=== PATIENT | female | born 1970 | race Two or more races ===

== ENCOUNTER → 2024-07-23 08:23 | Outpatient (REF) | payer MEDICARE, MEDICAID, SELFPAY ==
--- NOTE | ~2024-07-23 | NM_ITS ---
Lexiscan Myocardial perfusion study Indication: Chest pain, shortness of breath Technique: The patient was brought in for a Lexiscan perfusion study on 07/23/2024 and was injected 0.4 mg of Lexiscan intravenously. Within a minute of this injection 25 mCi of sestamibi was given intravenously. Images were obtained using the SPECT gamma camera interlaced with the gating device. Images were obtained in supine position. Resting perfusion study was performed on 07/29/2024. Patient was administered 25 mCi of sestamibi intravenously at rest. Images were then obtained in supine position. Total DLP 142 mGy-cm. Images were processed with the software and compared side to side in short axis, horizontal long axis and vertical long axis views. Findings: Raw aquisition reviewed. The stress perfusion study showed mildly decreased tracer uptake in the mid to distal lateral wall. There is also adjacent subdiaphragmatic tracer uptake. With CT attenuation correction, there is improvement suggestive of soft tissue attenuation artifact. The gated study shows normal LV systolic function with calculated LVEF of 62%. LV cavity is normal in size. The gated study shows normal wall thickening and contraction of segments. Resting study shows no significant perfusion abnormality. Gating at rest reveals normal wall motion with ejection fraction at 49%. The findings are consistent with lateral perfusion defect suggestive of soft tissue attenuation artifact. NM/NM chele perf SPECT rest & str Impression: 1. Myocardial perfusion imaging study shows no definitive evidence of ischemia or infarction. Reversible lateral perfusion defect suspected to be from soft tissue attenuation artifact. 2. Gated LVEF is 62% during stress and 49% during rest. 3. Transient ischemic dilatation not present. EKG component of the test reported separately. Electronically signed by: Manny Aragon MD 07/30/2024 12:15 PM EDT
--- NOTE | 2024-07-23 08:31 | CA_ITS ---
Acquisition Time: 2024-07-23 08:37:31 Total Exercise Time: 00:02:00 Test Indications: Dyspnea CP Medications: SEE H Protocol: LEXISCAN Max HR: 107 BPM 64% of Pred: 166 BPM Max BP: 172/070 mmHG Max Work Load: 1.6 METS Pharmacological stress test with Lexiscan injection, while walking slow on treadmill, without anginal symptoms, with 2/10 chest pressure at baseline which did not change during test, without arrythmia, with normotensive response to injection, with nondiagnostic EKG for ischemia. In recovery she was treated with Aminophylline 75mg IVP to reverse Lexiscan. Nuclear images pending. Test reviewed with Dr Aragon. Referred By: Leeanne Preciado Overread By: ROSAS FOWLER
== END ==
LOC: HO.CARD 08:23
PROVIDERS: PCP Physician Assistant Medical; Visit Provider Physician Assistant Medical
DX: R07.89 Other chest pain (principal)
CPT/HCPCS: 78452; 93017; A9500; J0280; J2785

== ENCOUNTER → 2024-07-23 08:31 | Outpatient (BNV) | payer MEDICARE, MEDICAID, SELFPAY | PROVIDERS: PCP Physician Assistant Medical; Visit Provider Nurse Practitioner Family | DX: R07.9 Chest pain, unspecified (principal); R06.02 Shortness of breath; R93.1 Abnormal findings on diagnostic imaging of heart and coronary circulation | CPT/HCPCS: 78452; 93016; 93018 ==

== ENCOUNTER 2024-09-08 14:31 | Outpatient (AMB) | payer MEDICARE, MEDICAID, SELFPAY ==
--- NOTE | 2024-09-08 14:46 | MHC.OFFVIS ---
Vital Signs 09/08/24 14:52 Height 4 ft 11 in Weight 166 lb 10.711 oz BMI 33.7 BP 136/84 Blood Pressure Location Rt brachial Position Sitting Pulse 62 Pulse Source Pulse Oximeter Pulse Oximetry (%) 96 Oxygen Delivery Method Room Air Intake Visit Reasons: Colonoscopy screening Intake Note: Erika presents in office today for a scheduled colo scrn. CC; Relevant GI Sx as reported per pt? Pt referred by PCP for colo. No sx per pt. ? Recent hx of relevant surgeries? No prior hx of colo. ? Relevant FMHx? No relevant hx per pt. Filer Metal Patterns Required: No Allergies No Known Allergies Allergy (Verified 09/08/24 14:50) Medication List - Last Reconciled 09/08/24 by Yelitza López, [facility]- amlodipine 5 mg PO DAILY atorvastatin 40 mg PO DAILY bisacodyl (Dulcolax (bisacodyl)) 20 mg (4 x 5 mg) PO ONCE 1 day bupropion HCl XL 300 mg PO DAILY clonidine HCl 0.1 mg PO BID famotidine 20 mg PO BID gabapentin mg PO polyethylene glycol 3350 (Miralax) 238 grams PO ONCE semaglutide (Ozempic) 0.25 mg subcut QWEEK HPI HPI Colonoscopy screening: Details: 53 year old? female here today for pre colonoscopy screening.? Patient was sent to us by her PCP.? This is her first colonoscopy screening.? Patient denies any gastrointestinal symptoms in the past or at present.? Patient reports occasional acid reflux depending on what she eats. Usually with red sauce. Patient is on famotidine b.i.d.. Patient is avoiding dietary triggers. Occasional reflux despite taking medication. Patient started taking Ozempic for weight loss about a month ago. Epigastric discomfort with 1st couple doses and doing better now. She is going in November for sleep study. Denies any personal or family history of gastrointestinal disease, colon polyps, or CRC.? Denies history of difficulty with sedation or anesthesia in the past.?? Denies any history of cardiac, renal, pulmonary, or hepatic disease.?? No history of infectious? diseases like hepatitis A, B, C, HIV or tuberculosis.? Patient is not on any anticoagulation [facility] Medical History (Updated 09/08/24 @ 14:50 by MIROSLAVA Dailey) Diabetes HTN (hypertension) Depression Social History (Updated 09/08/24 @ 14:50 by MIROSLAVA Dailey) Alcohol intake: never Patient Tobacco Use Status: Never used Tobacco Use of substances other than those prescribed or required for medical reasons: No Review of Systems Const Denies weight gain and Denies weight loss ENT Reports no additional complaints, Denies dysphagia and Denies odynophagia Card Reports no additional complaints Resp Reports no additional complaints GI Denies abdominal pain, Denies belching, Denies melena, Denies bloating, Denies change in bowel habits, Denies dysphagia, Denies excessive flatus, Denies dyspepsia, Reports heartburn (Occasions), Denies diarrhea, Denies loose stools, Denies nausea, Denies odynophagia and Denies vomiting Reports no additional complaints Musc Reports no additional complaints Neuro Reports no additional complaints Psych Reports no additional complaints Endo Reports no additional complaints Physical Exam Vital Signs: Last Vital Signs Pulse 62 09/08/24 14:52 BP 136/84 09/08/24 14:52 Pulse Ox 96 09/08/24 14:52 Oxygen Delivery Method Room Air 09/08/24 14:52 BMI result Body Mass Index 33.7 Const General: healthy appearing and no acute distress Nutritional Appearance: obese Orientation/consciousness: patient oriented x3 Resp Effort & Inspection: normal respiratory effort, able to speak in complete sentences, no tracheal deviation and symmetric chest movement Auscultation: clear to auscultation bilaterally Cardio Rate: regular rate GI Inspection: Yes normal to inspection, No distended and Yes obesity Palpation (GI): Soft to palpation, not firm, nontender and No hepatosplenomegaly present Auscultation: normal bowel sounds General: Yes no CVA tenderness Back/Spine/Pelvis Back: no CVA tenderness Skin General skin exam: elasticity normal, turgor normal and dry skin Neuro General: patient oriented x3 Psych Appearance: grossly normal Mental Status: mental status grossly normal Assessment & Plan Assessment & Plan (1) Screen for colon cancer: Code(s): Z12.11 - Encounter for screening for malignant neoplasm of colon (2) GERD (gastroesophageal reflux disease): Code(s): K21.9 - Gastro-esophageal reflux disease without esophagitis Plan Patient denies any GI, cardiac or respiratory symptoms.? Denies any issues with anesthesia in the past.? Denies any history of sleep apnea.? No history infectious diseases in the past or present.? Not on any anticoagulation therapy.? No family or personal history of colon cancer or polyps.? Patient denies melena, hematochezia, unintentional weight loss or ribbon like stools.? Discussed at length the pre-procedure,? prep, diet & medications as well as what to expect prior, during and after the procedure.?? Stressed the importance of good bowel prep.? Recommended the use of Vaseline or Calmoseptine OTC & baby wipes with bowel movements to promote comfort.? ?Patient verbalizes understanding and agrees to plan of care.? She was given the opportunity to ask questions and all questions answered.? We will see her after the procedure.? Medications: New polyethylene glycol 3350 (Miralax) As directed by gastroenterology department at [facility] 238 grams PO ONCE 238 grams 0RF Z12.11 - Encounter for screening for malignant neoplasm of colon bisacodyl (Dulcolax (bisacodyl)) take 4 tabs at noon the day before your colonoscopy 20 mg (4 x 5 mg) PO ONCE 4 tabs 0RF 1 day Z12.11 - Encounter for screening for malignant neoplasm of colon Coding Level of Care Code New Pt Level 3 (02240) Diagnoses Screen for colon cancer Z12.11 GERD (gastroesophageal reflux disease) K21.9 Time Spent (min) 40 Comment 30 minutes spent with patient and additional 10 minutes spent reviewing her records
[2024-09-08 14:52] VITALS: BP 136/84; PULSE 62; O2SAT 96; BMI 33.7
== END 2024-09-08 15:46 | disposition home or self-care (01) ==
PROVIDERS: PCP Physician Assistant Medical; Visit Provider Nurse Practitioner Family
DX: Z01.818 Encounter for other preprocedural examination (principal); Z12.11 Encounter for screening for malignant neoplasm of colon; K21.9 Gastro-esophageal reflux disease without esophagitis
CPT/HCPCS: 99024

== ENCOUNTER → 2024-09-08 14:31 | Outpatient (BNVA) | payer MEDICARE, MEDICAID, SELFPAY | PROVIDERS: PCP Physician Assistant Medical; Visit Provider Nurse Practitioner Family | DX: Z01.818 Encounter for other preprocedural examination (principal); K21.9 Gastro-esophageal reflux disease without esophagitis | CPT/HCPCS: 99212 ==

== ENCOUNTER 2024-12-29 06:47 | Day surgery (SDC) | payer MEDICARE, MEDICAID, SELFPAY ==
--- OUTSIDE RECORDS SUMMARY | 2024-11-20 14:11 | XMS_ITS | Clinical Summary ---
Author Organization [facility] ity Address [address] [place] [id number] Care Team Providers Care Pediatric Orthodontist Name Role Phone Unavailable Primary Care Provider Unavailabl e Social History Tobacco Use Types Packs/Day Years Used Date Smoking Tobacco: Never Assessed Comments Unknown Sex and Gender Information Value Date Recorded Sex Assigned at Not on file Legal Sex Female 2:07 AM EST Gender Identity Not on file Sexual Orientation Not on file Plan of Treatment Health Maintenance Due Date Last Done Comments Breast Cancer Screening 1969 DTaP,Tdap,and Td Vaccines (1 - Tdap) 1988 Hepatitis B Vaccines (1 of 3 - 19+ 3-dose series) 1988 Cervical Cancer Screening: P ap Smear 1990 Pneumococcal Vaccine: 50+ Ye ars (1 of 1 - PCV) 2019 Zoster Vaccines (1 of 2) 2019 Colorectal Cancer Screening: Colonoscopy 09/09/2022 Depression Screening 09/09/2022 HIV Screening 09/09/2022 Hepatitis C Screening 09/09/2022 Social Influencers of Health Screening 09/09/2022 COVID-19 Vaccine ( - 2023-2 5 season) 2024 Influenza Vaccine (#1) 2024 HIB Vaccines Aged Out No longer eligi ble based on patient's age to complete this topic HPV Vaccines Aged Out No longer eligi ble based on patient's age to complete this topic Hepatitis A Vaccines Aged Out No long er eligible based on patient's age to complete this topic IPV Vaccines Aged Out No longer eligi ble based on patient's age to complete this topic MMR Vaccines Aged Out No longer eligi ble based on patient's age to complete this topic Meningococcal ACWY Vaccine Aged Out N o longer eligible based on patient's age to complete this topic Meningococcal B Vacine Aged Out No lo nger eligible based on patient's age to complete this topic Pneumococcal Vaccine: Pediat rics (0 to 5 Years) and At-Risk Patients (6 to 64 Years) Aged Out No longer eligible b ased on patient's age to complete this topic RSV Immunization Patients Un stephanie 20 months Aged Out No longer eligible b ased on patient's age to complete this topic Varicella Vaccines Aged Out No longer eligible based on patient's age to complete this topic
--- OUTSIDE RECORDS SUMMARY | 2024-11-20 14:11 | XMS_ITS | Data Portability ---
Author Organization [facility], Main Office Address [address] [place] [address] [place] [phone] Care Team Providers Care Practical Nurse Name Role Phone [facility] Network Operations Center Technician PADMINI KLINE Primary Care Provider [phone] BETHANIE TRIVEDI Travel Professional JUAN WYNNE Orthopedic Surgeon Assessment No assessment recorded. Plan of Treatment Reminders Order Date Submit Date Provider Last Modified By Organization Details Last Modified Time Details Appointments Foll ow Up DM 30 2024 11:00A M Padmini Kline PA-C Not available Not available Not available Lab micr oalb umin /cre chad franco urin e 2024 025 [place] [facility], [facility] [address], [address], 11/12/2024 18:05:55 liptrinh orozco 2023 024 [place] [facility], [address], [address], 07/16/2024 06:08:49 trinh BARRERA ma 2023 024 [place] [facility], [address], [address], 07/16/2024 06:08:48 HbA1 c (hem oglo bin A1c) , zaid zarate 2023 024 [place] [facility], [address], [place], [address], 07/16/2024 06:08:50 CBC w/ auto diff 2023 024 [place] [facility], [address], [place], [address], 07/16/2024 06:08:47 nabor min D, 25-h ydro xy, tota l, seru m 2023 024 [place] [facility], [address], [place], [address], 07/16/2024 06:08:52 TSH, ultr a-se nsit praful, seru m 2023 024 [place] [facility], [address], [place], [address], 07/16/2024 06:08:51 hemo glob in A1C, fing erst ick 2023 024 In-Office Order, Internal Use Only DO Not Attach Compendium DO Not Attach Compendium, Do Not Delete/merge, [id number] 12/10/2023 13:28:37 HbA1 c (hem oglo bin A1c) , bloo d 2023 024 L[place] [facility], [address], [place], [address], 12/10/2023 13:40:32 lipi d pane l, seru m 2023 024 [place] [facility], [address], [place], [address], 07/07/2024 08:45:54 CMP, seru m or plas ma 2023 024 [place] [facility], [address], [place], [address], 07/07/2024 08:43:48 Referral gyne colo gist refe rral 2023 024 aurelio Not available 06/11/2024 08:38:15 slee p medi cine refe rral - Snor ing, obes ity, hype rten arnold . 2023 024 aurelio [facility], [address] [facility], [place], [address], 08/03/2024 16:18:42 jesús roen tero logi st refe rral 2023 024 aurelio [facility], [address] [place] [address] Dr, [facility], [place], [address], 08/24/2024 12:34:53 Procedures None silke rded . Surgeries None silke rded . Imaging MAMM O, scre enin g, digi sj, bila orion l 2023 024 aurelio [facility], [address], [place], [address], 07/16/2024 08:57:14 NM, myoc ardi al perf usio n scan , w/ stre ss - High risk for mohamud nary athe rosc lero sis, pt./ unab le to do regu lar stre ss due to dysp tony. 2023 024 [facility] (Imaging), [address] [place], [address], 07/23/2024 10:29:36 Medication Orders metf ormi n ER 500 mg tabl et,e xten ded rele ase 24 hr 2023 [id number], [address] [place], [address], 11/11/2024 14:45:56 Ozem pic 0.25 mg or 0.5 mg (2 mg/3 mL) subc utan eous pen inje ctor 2023 024 [id number], [address] [place], [address], 08/11/2024 14:06:33 Medr ol (Pedro ) 4 mg tabl ets in a dose pack 2023 024 [id number], [address] [place], [address], 08/11/2024 13:48:21 Wego vy 0.25 mg/0 .5 mL subc utan eous pen inje ctor 2023 025 [id number], [address] [place], [address], 11/11/2024 14:11:36 Wego vy 0.5 mg/0 .5 mL subc utan eous pen inje ctor 2023 024 [email or web address] os [id number], [address] [place], [address], 11/11/2024 14:12:04 Patient TargetsNo targets recorded. Patient Instructions Encounter Date Encounter Id Patient Instructions Last Modified By Organization Details Last Modified Time 12/10/2023 [id number] high blood pressure: care instructions Not available 12/10/2023 13:40:11 learning about high blood pressure Not available 12/10/2023 13:40:11 06/10/2024 [id number] mammogram: about this test Not available 06/10/2024 16:18:25 high cholesterol : care instructions Not available 06/10/2024 13:54:36 snoring: care instructions Not available 06/10/2024 13:58:58 high blood pressure: care instructions Not available 06/10/2024 13:54:36 learning about high blood pressure Not available 06/10/2024 13:54:36 06/16/2024 [id number] costochondritis: care instructions Not available 06/16/2024 14:54:43 08/11/2024 [id number] heart-healthy diet: care instructions Not available 08/11/2024 14:55:27 statins: care instructions Not available 08/11/2024 14:55:27 type 2 diabetes: care instructions Not available 08/11/2024 14:02:04 11/11/2024 [id number] type 2 diabetes: care instructions Not available 11/11/2024 14:46:56 Reason for Referral Sleep Medicine Referral for Snoring Snoring, obesity, hypertension. Referring Physician: Padmini Kline, Internal Medicine, Encounter Date: 06/10/2024 Hat Lacer Referral for Screening for malignant neoplasm of colon Referring Physician: Padmini Kline, Internal Medicine, Encounter Date: 06/10/2024 [employer] Referral for Sc reening for malignant neoplasm of cervix Referring Physician: Padmini Kline, Internal Medicine, Encounter Date: 06/10/2024 Results Created Date Observation Date Name Description Value Unit Range Abnormal Flag Note LastModifiedBy Organization Detail LastModifiedTime 12/10/1912/10/2023 hemog lobin A1C, finge rstic k A1C 6.2 % 4-6 abnormal Not Available In-Office Order Internal Use Only DO Not Attach Compendium DO Not Attach Compendium, Do Not Delete/merge, [id number] 12/10/2023 12:54:22 07/15/2007/16/2024 CBC WITH DIFFE RENTI AL/PL ATELE T WBC 7.7 x10e3 /uL 3.4-10 .8 normal Not Available [facility] ([facility]) [address] [place], [address], 07/16/2024 06:08:47 07/15/2007/16/2024 CBC WITH DIFFE RENTI AL/PL ATELE T RBC 4.51 x10e6 /uL 3.77-5 .28 normal Not Available [facility] ([facility]) [address] [place], [address], 07/16/2024 06:08:47 07/15/2007/16/2024 CBC WITH DIFFE RENTI AL/PL ATELE T hemoglobin 13.1 g/dL 11.1-1 5.9 normal Not Available [facility] ([facility]) [address] [place], [address], 07/16/2024 06:08:47 07/15/2007/16/2024 CBC WITH DIFFE RENTI AL/PL ATELE T hematocrit 40.5 % 34.0-4 6.6 normal Not Available [facility] ([facility]) [address] [place], [address], 07/16/2024 06:08:47 07/15/20 24 07/16/2024 CBC WITH DIFFE RENTI AL/PL ATELE T MCV 90 fL 79-97 normal Not Available [facility] ([facility]) [address] [place], [address], 07/16/2024 06:08:47 07/15/2007/16/2024 CBC WITH DIFFE RENTI AL/PL ATELE T MCH 29.0 pg 26.6-3 3.0 normal Not Available [facility] ([facility]) [address] [place], [address], 07/16/2024 06:08:47 07/15/2007/16/2024 CBC WITH DIFFE RENTI AL/PL ATELE T MCHC 32.3 g/dL 31.5-3 5.7 normal Not Available [facility] ([facility]) [address] [place], [address], 07/16/2024 06:08:47 07/15/20 24 07/16/2024 CBC WITH DIFFE RENTI AL/PL ATELE T RDW 13.0 % 11.7-1 5.4 Not Available [facility]) [address] [place], [address], 07/16/2024 06:08:47 07/15/20 24 07/16/2024 CBC WITH DIFFE RENTI AL/PL ATELE T platelets 299 x10e3 /uL 150-45 0 normal Not Available [facility] ([facility]) [address] [facility], [place], [address], 07/16/2024 06:08:47 07/15/20 24 07/16/2024 CBC WITH DIFFE RENTI AL/PL ATELE T neutrophils 58 % not estab. normal Not Available [facility] ([facility]) [address] [facility], [place], [address], 07/16/2024 06:08:47 07/15/20 24 07/16/2024 CBC WITH DIFFE RENTI AL/PL ATELE T lymphs 33 % not estab. normal Not Available [facility] ([facility]) [address] [facility], [place], [address], 07/16/2024 06:08:47 07/15/20 24 07/16/2024 CBC WITH DIFFE RENTI AL/PL ATELE T monocytes 7 % not estab. normal Not Available [facility] ([facility]) [address] [facility], [place], [address], 07/16/2024 06:08:47 07/15/20 24 07/16/2024 CBC WITH DIFFE RENTI AL/PL ATELE T eos 1 % not estab. normal Not Available [facility] ([facility]) [address] [facility], [place], [address], 07/16/2024 06:08:47 07/15/20 24 07/16/2024 CBC WITH DIFFE RENTI AL/PL ATELE T basos 1 % not estab. normal Not Available [facility] ([facility]) [address] [facility], [place], [address], 07/16/2024 06:08:47 07/15/20 24 07/16/2024 CBC WITH DIFFE RENTI AL/PL ATELE T immature cells GAS TREATER Not Available [facility]) [address] [place], [address], 07/16/2024 06:08:47 07/15/20 24 07/16/2024 CBC WITH DIFFE RENTI AL/PL ATELE T neutrophils (absolute) 4.4 x10e3 /uL 1.4-7. 0 normal Not Available [facility] ([facility]) [address] [place], [address], 07/16/2024 06:08:47 07/15/2007/16/2024 CBC WITH DIFFE RENTI AL/PL ATELE T lymphs (absolute) 2.6 x10e3 /uL 0.7-3. 1 normal Not Available [facility] ([facility]) [address] [place], [address], 07/16/2024 06:08:47 07/15/20 24 07/16/2024 CBC WITH DIFFE RENTI AL/PL ATELE T monocytes(ab solute) 0.5 x10e3 /uL 0.1-0. 9 normal Not Available [facility]) [address] [place], [address], 07/16/2024 06:08:47 07/15/20 24 07/16/2024 CBC WITH DIFFE RENTI AL/PL ATELE T eos (absolute) 0.1 x10e3 /uL 0.0-0. 4 normal Not Available [facility] ([facility]) [address] [place], [address], 07/16/2024 06:08:47 07/15/20 24 07/16/2024 CBC WITH DIFFE RENTI AL/PL ATELE T baso (absolute) 0.1 x10e3 /uL 0.0-0. 2 normal Not Available [facility] ([facility]) [address] [place], [address], 07/16/2024 06:08:47 07/15/20 24 07/16/2024 CBC WITH DIFFE RENTI AL/PL ATELE T immature granulocytes 0 % not estab. Not Available [facility] ([facility]) [address] [facility], [place], [address], 07/16/2024 06:08:47 07/15/2007/16/2024 CBC WITH DIFFE RENTI AL/PL ATELE T immature grans (abs) 0.0 x10e3 /uL 0.0-0. 1 Not Available [facility] ([facility]) [address] [facility], [place], [address], 07/16/2024 06:08:47 07/15/20 24 07/16/2024 CBC WITH DIFFE RENTI AL/PL ATELE T NRBC GAS TREATER Not Available [facility] ([facility]) [address] [facility], [place], [address], 07/16/2024 06:08:47 07/15/2007/16/2024 CBC WITH DIFFE RENTI AL/PL ATELE T hematology comments: GAS TREATER Not Available [facility]) [address] [facility], [place], [address], 07/16/2024 06:08:47 07/15/2007/16/2024 COMP. METAB OLIC PANEL (14) glucose 120 mg/dL 70-99 above high normal Not Available [facility] ([facility]) [address] [facility], [place], [address], 07/16/2024 06:08:48 07/15/2007/16/2024 COMP. METAB OLIC PANEL (14) BUN 7 mg/dL 6-24 normal Not Available [facility] ([facility]) [address] [facility], [place], [address], 07/16/2024 06:08:48 07/15/2030 0707/16/2024 COMP. METAB OLIC PANEL (14) creatinine 0.76 mg/dL 0.57-1 .00 normal Not Available [facility] ([facility]) [address] [facility], [place], [address], 07/16/2024 06:08:48 07/15/20 24 07/16/2024 COMP. METAB OLIC PANEL (14) eGFR 93 mL/mi n/1.7 3 >59 normal Not Available [facility] ([facility]) [address] [facility], [place], [address], 07/16/2024 06:08:48 07/15/20 24 07/16/2024 COMP. METAB OLIC PANEL (14) BUN/creatini ne ratio 9 9-23 normal Not Available [facility]) [address] [facility], [place], [address], 07/16/2024 06:08:48 07/15/20 24 07/16/2024 COMP. METAB OLIC PANEL (14) sodium 145 mmol/ L 134-14 4 above high normal Not Available [facility] ([facility]) [address] [facility], [place], [address], 07/16/2024 06:08:48 07/15/20 24 07/16/2024 COMP. METAB OLIC PANEL (14) potassium 4.1 mmol/ L 3.5-5. 2 normal Not Available [facility] ([facility]) [address] [facility], [place], [address], 07/16/2024 06:08:48 07/15/20 24 07/16/2024 COMP. METAB OLIC PANEL (14) chloride 107 mmol/ L 96-106 above high normal Not Available [facility] ([facility]) [address] [facility], [place], [address], 07/16/2024 06:08:48 07/15/20 24 07/16/2024 COMP. METAB OLIC PANEL (14) carbon dioxide, total 22 mmol/ L 20-29 normal Not Available [facility] ([facility]) [address] [place], [address], 07/16/2024 06:08:48 07/15/20 24 07/16/2024 COMP. METAB OLIC PANEL (14) calcium 9.3 mg/dL 8.7-10 .2 normal Not Available [facility] ([facility]) [address] [place], [address], 07/16/2024 06:08:48 07/15/20 24 07/16/2024 COMP. METAB OLIC PANEL (14) protein, total 6.9 g/dL 6.0-8. 5 normal Not Available [facility] ([facility]) [address] [place], [address], 07/16/2024 06:08:48 07/15/20 24 07/16/2024 COMP. METAB OLIC PANEL (14) albumin 4.1 g/dL 3.8-4. 9 normal Not Available [facility] ([facility]) [address] [place], [address], 07/16/2024 06:08:48 07/15/20 24 07/16/2024 COMP. METAB OLIC PANEL (14) globulin, total 2.8 g/dL 1.5-4. 5 Not Available [facility] ([facility]) [address] [facility] [place], [address], 07/16/2024 06:08:48 07/15/20 24 07/16/2024 COMP. METAB OLIC PANEL (14) bilirubin, total 0.2 mg/dL 0.0-1. 2 normal Not Available [facility] ([facility] [address] [facility] [place], [address], 07/16/2024 06:08:48 07/15/20 24 07/16/2024 COMP. METAB OLIC PANEL (14) alkaline phosphatase 109 IU/L 44-121 normal Not Available [facility] [address] [facility] [place], [address], 07/16/2024 06:08:48 07/15/20 24 07/16/2024 COMP. METAB OLIC PANEL (14) AST (SGOT) 17 IU/L 0-40 normal Not Available [facility] ([facility]) [address] [facility] [place], [address], 07/16/2024 06:08:48 07/15/20 24 07/16/2024 COMP. METAB OLIC PANEL (14) ALT (SGPT) 17 IU/L 0-32 normal Not Available [facility] ([facility]) [address] [facility] [place], [address], 07/16/2024 06:08:48 07/15/20 24 07/16/2024 LIPID PANEL cholesterol, total 149 mg/dL 100-19 9 normal Not Available [facility] ([facility]) [address] [facility] [place], [address], 07/16/2024 06:08:49 07/15/20 24 07/16/2024 LIPID PANEL triglyceride s 206 mg/dL 0-149 above high normal Not Available [facility]) [address] [facility] [place], [address], 07/16/2024 06:08:49 07/15/20 24 07/16/2024 LIPID PANEL HDL cholesterol 41 mg/dL >39 normal Not Available [facility] [address] [facility] [place], [address], 07/16/2024 06:08:49 07/15/20 24 07/16/2024 LIPID PANEL VLDL cholesterol elian 34 mg/dL 5-40 Not Available [facility] [address] [facility] [place], [address], 07/16/2024 06:08:49 07/15/20 24 07/16/2024 LIPID PANEL LDL chol calc ([facility]) 74 mg/dL 0-99 Not Available [facility] [address] [facility], [place], [address], 07/16/2024 06:08:49 07/15/20 24 07/16/2024 LIPID PANEL LDL calc comment: GAS TREATER Not Available [facility] [address] [facility], [place], [address], 07/16/2024 06:08:49 07/15/20 24 07/16/2024 HEMOG LOBIN A1C hemoglobin A1C 6.5 % 4.8-5. 6 above high normal Predi abete s: 5.7 - 6.4 Diabe vineet: >6.4 Glyce samina contr ol for adult s with diabe vineet: <7.0 Not Available [facility] ([facility]) [address] [facility], [place], [address], 07/16/2024 06:08:50 07/15/20 24 07/16/2024 TSH TSH 2.850 uIU/m L 0.450- 4.500 normal Not Available [facility] ([facility]) [address] [facility], [place], [address], 07/16/2024 06:08:50 07/15/20 24 07/16/2024 VITAM IN D, 25-HY DROXY vitamin D, 25-hydroxy 19.9 NG/mL 30.0-1 00.0 below low normal Vitam in D defic iency has been defin ed by the Insti tute of Medic ine and an Endoc rine Socie ty pract ice guide line as a level of serum 25-OH vitam in D less than 20 ng/mL (1,2) . The Endoc rine Socie ty went on to furth er defin e vitam in D insuf ficie ncy as a level betwe en 21 and 29 ng/mL (2). 1. IOM (Inst itute of Medic ine). 2010. Dieta ry refer ence intak es for calci um and D. Washi ngton [place]: The [facility] . 2. Gary FRANCIS, Francisco CAMPOS, Bischeri off-F martin CUMMINGS, et al. Evalu ation , treat ment, and preve ntion of vitam in D defic iency : an Endoc rine Socie ty clini elian pract ice guide line. JCEM. 2010; 96(7) :191 -. Not Available [facility] ([facility]) [address] [facility], [place], [address], 07/16/2024 06:08:52 08/28/20 24 08/29/2024 VITAM IN D, 25-HY DROXY vitamin D, 25-hydroxy 56.7 NG/mL 30.0-1 00.0 Vitam in D defic iency has been defin ed by the Insti tute of Medic ine and an Endoc rine Socie ty pract ice guide line as a level of serum 25-OH vitam in D less than 20 ng/mL (1,2) . The Endoc rine Socie ty went on to furth er defin e vitam in D insuf ficie ncy as a level betwe en 21 and 29 ng/mL (2). 1. IOM (Inst itute of Medic ine). 2009. Dieta ry refer ence intelva es for calci um and D. Lillie smith [place]: The [facility] . 2. Gary FRANCIS, Francisco CAMPOS, Vita off-F martin CUMMINGS, et al. Evalu ation , treat ment, and preve ntion of vitam in D defic iency : an Endoc rine Socie ty clini elian pract ice guide line. JCEM. 2010; 96(7) :191 -. Not Available [facility] ([facility]) [address] [facility], [place], [address], 08/29/2024 06:08:40 11/11/19 25 11/12/2024 ALBUM IN/CR EAT RATIO , RANDO M UR creatinine, urine 296.6 mg/dL not estab. normal Not Available [facility] ([facility]) [address] [facility], [place], [address], 11/12/2024 18:05:55 11/11/19 25 11/12/2024 ALBUM IN/CR EAT RATIO , JHONNY Diallo UR albumin, urine 12.0 ug/mL not estab. Not Available [facility] ([facility]) [address] [facility], [place], [address], 11/12/2024 18:05:55 11/11/19 25 11/12/2024 ALBUM IN/CR EAT RATIO , NYO Imani UR alb/creat ratio 4 mg/g_ creat 0-29 Rosanna l: 0 - 29 Moder ately incre ased: 30 - 300 Sever ruba incre ased: >300 Not Available [facility] ([facility]) [address] [facility], [place], [address], 11/12/2024 18:05:55 07/23/20 24 07/23/2024 NM, myoca rdial perfu arnold scan, w/ stres s No observ ation record ed. [facility] (Medical Records) [address] [place] [address], [address], 07/24/2024 15:09:56 07/30/20 24 07/23/2024 NM, myoca rdial perfu arnold scan, w/ stres s No observ ation record ed. [facility] (Medical Records) [address] [place], [address], 08/10/2024 21:44:08 08/09/20 24 08/09/2024 MAMMO kelvin digit al, bilat eral No observ ation record ed. [email or web address] [facility] [address], [place], [address], 08/10/2024 09:05:45 08/09/20 24 08/08/2024 MAMMO kelvin digit al, bilat eral PROCED URE: MM Digita l Mammo Screen ing INDICA TION: Screen ing for breast cancer . No known palpab le abnorm alitie s. COMPAR JIMMY: Prior mammog cathleen most recent ly dated 2021. TECHNI QUE: Full-f ield digita l CC and MLO 3D tomosy nthesi s images of both breast s were acquir ed. Comput er-aid ed detect ion (CAD) was utiliz ed in the interp retati on of this study. DENSIT Y: There are scatte red areas of fibrog landul ar densit y. FINDIN GS: Only seen on the cranio caudal view is an 8 mm oval asymme try in the slight ly medial left breast at middle depth. Furthe r evalua tion with spot compre ssion and ML views is recomm ended. Additi onal target ed ultras ound in the right No suspic ious findin gs are seen in the right breast . IMPRES ARNOLD: Additi onal imagin g recomm ended. We will recall the deirdre kaur. RECOMM ENDATI ON: Diagno stic 3D tomosy nthesi s of the left breast with schedu led ultras ound BI-RAD S: 0 Incomp lete - Need Additi onal Imagin g Evalua tion. Lay letter mailed to deirdre kaur WSN: [id number] Orderi ng Physic ashley: Edwin Kline Dictat ed By: Jose Angel Mcgowan MD Dictat ed Date/T cecily: 1:03 pm Review ed By: Jose Angel Mcgowan MD Signed By: Jose Angel Mcgowan MD Signed Date/T cecily: 1:03 pm Transc ribed By: MARCIA Transc riptio n Date/T cecily: 1:01 pm Birads : Deirdre kaur Class: Outpat ient [email or web address] [facility] (Outpt Imaging) [address] [place], [address], 08/10/2024 09:05:45 08/18/20 24 08/18/2024 US, shikha clemons No observ ation record ed. [facility] [address], [place], [address], 08/18/2024 10:08:12 08/18/20 24 08/18/2024 US, aixa t, limit ed PROCED URE: MM Digita l Mammo Unilat Left, US Breast Left Limite d INDICA TION: Callba ck left breast COMPAR JIMMY: Multip le prior compar jimmy studie s, most recent on 2023. TECHNI QUE: Digita l diagno stic mammog katharine consis ting of a spot compre ssion view in the cranio caudad projec tion and a full field latera l view using 3D tomosy nthesi s. Comput er-aid ed detect ion (CAD) was utiliz ed in the interp retati on of this study. In additi on, target ed high-r esolut ion ultras ound of the left breast in the area of mammog raphic concer n was perfor med. DENSIT Y: There are scatte red areas of fibrog landul ar densit y. FINDIN GS: The previo usly seen asymme try in the centra l left breast only seen in the cranio caudal projec tion is no longer apprec iated in the spot compre ssion view or mediol ateral projec tion. Howeve r, ultras ound was perfor med to better charac terize the breast parenc hyma. Sonogr aphic evalua tion of the left breast focusi ng in the retroa reolar region from the nipple to the chest wall and at 12:00 and 6:00 positi ons, 1-6 cm from the nipple , was perfor med. No abnorm ality is presen t. IMPRES ARNOLD: Resolu tion of the asymme try in the centra l left breast withou t sonogr aphic correl ate. This may repres ent overla pping fibrog landul ar tissue , howeve r given the initia l appear ance in the screen ing mammog katharine of 2023, 6 months follow -up with 3D tomosy nthesi s is recomm ended to confir m resolu tion of this findin g and prove benign ity. RECOMM ENDATI ON: Follow -up diagno stic 3D tomosy nthesi s of the left breast in 6 months BI-RAD S: 3 (Proba lara Benign ) Lay letter mailed to deirdre kaur WSN: [id number] Orderi ng Physic ashley: Edwin Kline ia Dictat ed By: Charo David MD Dictat ed Date/T cecily: 9:20 am Review ed By: Charo David MD Signed By: Charo David MD Signed Date/T cecily: 9:20 am Transc ribed By: MARCIA Transc ribed Date/T cecily: 9:01 am Deirdre kaur Class: Outpat ient [facility] (Outpt Imaging) [address] [place] [address], [address], 08/18/2024 09:51:21 08/18/20 24 08/18/2024 mm digit al mammo unila t left PROCED URE: MM Digita l Mammo Unilat Left, US Breast Left Limite d INDICA TION: Callba ck left breast COMPAR JIMMY: Multip le prior compar jimmy studie s, most recent on 2023. TECHNI QUE: Digita l diagno stic mammog katharine consis ting of a spot compre ssion view in the cranio caudad projec tion and a full field latera l view using 3D tomosy nthesi s. Comput er-aid ed detect ion (CAD) was utiliz ed in the interp retati on of this study. In additi on, target ed high-r esolut ion ultras ound of the left breast in the area of mammog raphic concer n was perfor med. DENSIT Y: There are scatte red areas of fibrog landul ar densit y. FINDIN GS: The previo usly seen asymme try in the centra l left breast only seen in the cranio caudal projec tion is no longer apprec iated in the spot compre ssion view or mediol ateral projec tion. Howeve r, ultras ound was perfor med to better charac terize the breast parenc hyma. Sonogr aphic evalua tion of the left breast focusi ng in the retroa reolar region from the nipple to the chest wall and at 12:00 and 6:00 positi ons, 1-6 cm from the nipple , was perfor med. No abnorm ality is presen t. IMPRES ARNOLD: Resolu tion of the asymme try in the centra l left breast withou t sonogr aphic correl ate. This may repres ent overla pping fibrog landul ar tissue , howeve r given the initia l appear ance in the screen ing mammog katharine of 2023, 6 months follow -up with 3D tomosy nthesi s is recomm ended to confir m resolu tion of this findin g and prove benign ity. RECOMM ENDATI ON: Follow -up diagno stic 3D tomosy nthesi s of the left breast in 6 months BI-RAD S: 3 (Proba lara Benign ) Lay letter mailed to deirdre kaur WSN: [id number] Orderi ng Physic ashley: Edwin Kline Dictat ed By: Charo David MD Dictat ed Date/T cecily: 9:20 am Review ed By: Charo David MD Signed By: Charo David MD Signed Date/T cecily: 9:20 am Transc ribed By: MARCIA Transc riptio n Date/T cecily: 9:01 am Birads : Deirdre kaur Class: Outpat ient [facility] (Outpt Imaging) [address] [place] [address], [address], 11/11/2024 14:50:42 Result Notes None recorded. Problems Name Problem SNOMED Code Status Onset Date Resolution Date Notes Provider Name and Address Organization Details Recorded Time Abdomina l pain 82715475 Completed 201204/27/2014 RECORDED 11/06/19 13 1:40AM BY SHAHID BOWIE MA, ANNOTATI ON/ADDGRISEL wheeler MA - [facility] [place] 6 11:24:43 Epigastr ic pain 61133944 Completed 201104/27/2014 STORY: PROB HEARTBUR N; RECORDED 06/10/20 12 1:26PM BY SHAHID BOWIE MA, [facility]ATI [facility] DAVE ZarateSamantha merna null, [facility] 6 11:24:43 Acute pharyngi tis 053113819 Completed 200804/27/2014 IMPRESSI ON: SEND FOR STREP, ALL SEEMS VIRAL TX WITH MOTRIN, FLUIDS AND REST; RECORDED 08/03/20 09 12:44PM BY FAVIAN MONTILLA ON/[facility] Amber MoultonEhsanrobert merna null, [facility] 6 11:24:43 Acute sinusiti s [id number] Completed 201104/27/2014 RECORDED 06/10/20 12 1:26PM BY SHAHID BOWIE MA, FAVIAN ON[facility] Amber ZarateMarlenrobert merna null, [facility] 6 11:24:43 Acute upper respirat ory infectio n 28147563 Completed 201104/27/2014 RECORDED 06/10/20 12 1:26PM BY SHAHID BOWIE MA, FAVIAN ON/[facility] Amber TessaMarlenrobert merna null, [facility] 6 11:24:43 Anemia 476745015 Completed 02/04/2019 Padmini Kline PA-C [address] [facility] [address], [facility] [place], [address] [place] [address] 9 13:33:00 Patient status finding [id number] Completed 201204/27/2014 RECORDED 02/20/20 13 10:03AM BY NITISH BAEZ MA, ANNOTGUILLERMO ON/[facility] Ambre TessaSamantha merna null, [facility] 6 11:24:43 Backache [id number] Completed 201104/27/2014 IMPRESSI ON: CHRONIC/ RECURREN T. 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 DISCUSSE D NATURAL COURSE OF AIRLINE LOUNGE RECEPTIONIST AL BACK PAIN. WILL REST, USE INTERMIT TENT HEAT/ICE , NSAID FOR PAIN. WILL LIKELY NEED PT, POSSIBLE REFERRAL TO PSS SHOULD SXS FAIL TO IMPROVE. DECLINES ORDER FOR NOW, WILL CONTACT ME IN 1 WEEK WITH UPDATE.; RECORDED 06/10/20 12 1:26PM BY SHAHID BOWIE MA, FAVIAN ON/[facility] platt null, [facility] 6 11:24:43 Screenin g for malignan t neoplasm of cervix Completed 201304/27/2014 RECORDED 01/12/20 14 11:25AM BY NITISH BAEZ MA, FAVIAN ON/[facility] Amber platt null, [facility] 6 11:24:43 Breathin g painful [id number] Completed 201104/27/2014 RECORDED 06/10/20 12 1:26PM BY SHAHID BOWIE MA, FAVIAN ON/[facility] Amber platt null, [facility] 6 11:24:43 Chest pain 36792035 Completed 201307/20/2014 IMPRESSI ON: ATYPICAL CHEST PAIN, REASSURI NG ECG AND NORMAL EXAM, SUSPECT ANXIETY RELATED BUT SHE DOES REPORT A SYNCOPAL EPISODE, WILL CHECK SOME LABS, SHE DOES HAVE LORAZEPA M TO TAKE IF NEEDED; RECORDED 03/08/20 14 10:56AM BY NITISH BAEZ MA, OFFICE VISIT Amber wheeler, [facility] 6 11:24:43 Dysphagi a [id number] Completed 200804/27/2014 RECORDED 06/18/20 09 11:33AM BY FAVIAN BOSS ON/[facility] Amber platt null, [facility] 6 11:24:43 Dysuria [id number] Completed 200704/27/2014 RECORDED 08/10/20 08 2:55PM BY HILLARY ARENAS MA, FAVIAN ON/[facility] Amber platt null, [facility] 6 11:24:43 Gastroes ophageal reflux disease 043733500 Active Amber wheeler, [facility] 6 11:24:43 Malaise and fatigue 026779640 Completed 11/07/2017 Tran Kaplan MA null, [facility] 8 08:34:08 Influenz a vaccine needed 78234163406 06 Completed 201304/27/2014 RECORDED 01/12/20 14 11:25AM BY NITISH BAEZ MA, JOLLYATI ON/ADDEN DUM Amber MoultonEhsanrobert merna null, [facility] 6 11:24:43 Noninfec tious gastroen teritis 19745317 Completed 201104/27/2014 RECORDED 06/10/20 12 1:25PM BY SHAHID BOWIE MA, FAVIAN ON/ADDEN DUM Amber MoultonEhsanrobert merna null, [facility] 6 11:24:43 Adult health examinat ion Completed 201204/27/2014 RECORDED 02/20/20 13 10:03AM BY NITISH BAEZ MA, FAVIAN ON/ADDEN DUM Amber MoultonEhsanrobert merna null, [facility] 6 11:24:43 General examinat ion of patient Completed 200704/27/2014 RECORDED 08/10/20 08 2:54PM BY HILLARY ARENAS MA, FAVIAN ON/ADDEN DAVE Berriosannarobert merna null, [facility] 6 11:24:43 Influenz a with respirat ory manifest ation other than pneumoni a Completed 201104/27/2014 STORY: CLINICAL DX. FEVER/MY LAGIA/CUMMINGS ; RECORDED 06/10/20 12 1:26PM BY SHAHID BOWIE MA, FAVIAN ON/ADDEN DUM Amber MoultonEhsanrobert merna null, [facility] 6 11:24:43 Insomnia 512804795 Active Amber wheeler, [facility] 6 11:24:43 Transien t insomnia 730334568 Completed 02/04/2019 Padmini Kline PA-C [address], [place], [address], [facility] 9 13:33:45 Hyperlip idemia screenin g Completed 201307/20/2014 RECORDED 03/08/20 14 10:56AM BY NITISH BAEZ MA, OFFICE VISIT Amber platt null, [facility] 6 11:24:43 Low back pain 036797899 Completed 201204/27/2014 RECORDED 05/26/20 13 9:50AM BY NITISH BAEZ MA, ANNOTATI ON/ADDEN DUM Tran wheeler, [facility] 6 08:58:09 Lumbar sprain 882346004 Completed 200804/27/2014 RECORDED 06/18/20 09 11:34AM BY KASIA ARSHAD, JOLLYATI ON/ADDEN DUM Amber platt null, [facility] 6 11:24:43 Single major depressi ve episode Completed 10/24/2018 Padmini Kline PA-C [address], [place], [address], [facility] 9 14:24:18 Screenin g for malignan t neoplasm of breast Completed 201304/27/2014 RECORDED 01/12/20 14 11:25AM BY NITISH BAEZ MA, JOLLYATI ON/ADDEN DUM Amber platt null, [facility] 6 11:24:43 Patient status finding [id number] Completed 201307/20/2014 RECORDED 03/08/20 14 10:56AM BY NITISH BAEZ MA, OFFICE VISIT Amber platt null, [facility] 6 11:24:43 Cyst of ovary 11486946 Completed 09/14/2016 Tran wheeler, [facility] 6 08:58:43 Shoulder joint pain 782183592 Completed 201104/27/2014 IMPRESSI ON: R SHOULDER , SUSPECT AN OVERUSE SECONDAR Y TO WORK ACTIVITI ES. 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 CALL FOR WORSENIN G OR IF NO BETTER IN 1 WEEK.; RECORDED 06/10/20 12 1:26PM BY SHAHID BOWIE MA, FAVIAN ON/ADDEN DAVE wheeler [facility] 6 11:24:43 Panic disorder without agorapho guilherme 20369358 Active Amber wheeler [facility] 6 11:24:43 Adult health examinat ion Completed 201307/20/2014 RECORDED 03/08/20 14 10:56AM BY NITISH BAEZ MA, OFFICE VISIT Amber wheeler [facility] 6 11:24:43 Sciatic nerve lesion 156122463 Completed 201104/27/2014 RECORDED 06/10/20 12 1:25PM BY SHAHID BOWIE MA, ANNOTATI ON/[facility] 6 11:24:43 Chronic sinusiti s 14019073 Completed 201104/27/2014 RECORDED 06/10/20 12 1:26PM BY SHAHID BOWIE MA, ANNOTATI ON/[facility] 6 11:24:43 Toxic effect of venom 11190102 Completed 201104/27/2014 IMPRESSI ON: L ARM WITH WHAT APPEARS TO BE A MODERATE LOCALIZE D ALLERGIC RXN. NO SIGNS OF SECONDAR Y INFEC. PT TO CONTINUE WITH ICE COMPRESS ES AND WILL START ON BENADRYL . MAY ALSO USE TOPICAL HYDROCOR TISONE FOR SX RELIEF. MONITOR SXS AT HOME AND F/U PRN IF ANY WORSENIN G.; RECORDED 06/10/20 12 1:25PM BY SHAHID BOWIE MA, FAVIAN ON/ADDEN DUM Amber wheeler [facility] 6 11:24:43 Syncope and collapse 802753392 Completed 201104/27/2014 RECORDED 06/10/20 12 1:26PM BY SHAHID BOWIE MA, FAVIAN ON/ADDEN DUM KASIA Worrell, [facility] 0 15:59:02 Viral disease 02342700 Completed 201104/27/2014 RECORDED 06/10/20 12 1:26PM BY SHAHID BOWIE MA, ANNOTATI ON/ADDEN DUM Amber wheeler [facility] 6 11:24:43 Acute pharyngi tis 519150395 Completed 07/20/2014 Amber wheeler [facility] 6 11:24:43 Acute upper respirat ory infectio n 85875390 Completed 07/20/2014 Amber wheeler [facility] 6 11:24:43 Contact dermatit is caused by urushiol from [facility] dahlia [id number] Completed 07/20/2014 Amber wheeler [facility] 6 11:24:43 Abdomina l pain 72058551 Completed 201205/17/2014 RECORDED 11/06/19 13 1:40AM BY SHAHID BOWIE MA, ANNOTATI ON/ADDEN DUM Amber wheeler [facility] 6 11:24:43 Epigastr ic pain 33932986 Completed 201105/17/2014 STORY: PROB HEARTBUR N; RECORDED 06/10/20 12 1:26PM BY SHAHID BOWIE MA, FAVIAN ON/ADDEN DUM Amber wheeler [facility] 6 11:24:43 Acute pharyngi tis 898913134 Completed 200805/17/2014 IMPRESSI ON: SEND FOR STREP, ALL SEEMS VIRAL TX WITH MOTRIN, FLUIDS AND REST; RECORDED 08/03/20 09 12:44PM BY FAVIAN MONTILLA ON/[facility] Amber TessaSamantha merna null, [facility] 6 11:24:43 Acute sinusiti s 65525618 Completed 201105/17/2014 RECORDED 06/10/20 12 1:26PM BY SHAHID BOWIE MA, FAVIAN ON/ADDEN DAVE Amber TessaMarlenrobert merna null, [facility] 6 11:24:43 Acute upper respirat ory infectio n 39955726 Completed 201105/17/2014 RECORDED 06/10/20 12 1:26PM BY SHAHID BOWIE MA, [facility]IAN ON[facility] Amber TessaSamantha merna null, [facility] 6 11:24:43 Patient status finding [id number] Completed 201205/17/2014 RECORDED 02/20/20 13 10:03AM BY NITISH BAEZ MA, [facility]IAN ON[facility] Amber TessaMarlenrobert merna null, [facility] 6 11:24:43 Backache 347080924 Completed 201105/17/2014 IMPRESSI ON: CHRONIC/ RECURREN T. 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 DISCUSSE D NATURAL COURSE OF AIRLINE LOUNGE RECEPTIONIST AL BACK PAIN. WILL REST, USE INTERMIT TENT HEAT/ICE , NSAID FOR PAIN. WILL LIKELY NEED PT, POSSIBLE REFERRAL TO PSS SHOULD SXS FAIL TO IMPROVE. DECLINES ORDER FOR NOW, WILL CONTACT ME IN 1 WEEK WITH UPDATE.; RECORDED 06/10/20 12 1:26PM BY SHAHID BOWIE MA, FAVIAN ON/ELIDIA ZarateMarlenrobert merna null, [facility] 6 11:24:43 Screenin g for malignan t neoplasm of cervix Completed 201305/17/2014 RECORDED 01/12/20 14 11:25AM BY NITISH BAEZ MA, ANNOTATI ON/ADDEN DUM Amber D'Alessan merna null, [facility] 6 11:24:43 Breathin g painful 28590140 Completed 201105/17/2014 RECORDED 06/10/20 12 1:26PM BY SHAHID BOWIE MA, ANNOTATI ON/ADDEN DUM Amber D'Alessan merna null, [facility] 6 11:24:43 Dysphagi a 79213515 Completed 200805/17/2014 RECORDED 06/18/20 09 11:33AM BY KASIA ARSHAD, JOLLYATI ON/ADDEN DUM Amber D'Alessan merna null, [facility] 6 11:24:43 Dysuria 79147271 Completed 200705/17/2014 RECORDED 08/10/20 08 2:55PM BY HILLARY ARENAS MA, JOLLYATI ON/ADDEN DUM Amber D'Alessan merna null, [facility] 6 11:24:43 Influenz a vaccine needed 49398772359 06 Completed 201305/17/2014 RECORDED 01/12/20 14 11:25AM BY NITISH BAEZ MA, FAVIAN ON/ADDEN DUM Amber D'Alessan merna null, [facility] 6 11:24:43 Noninfec tious gastroen teritis 02366926 Completed 201105/17/2014 RECORDED 06/10/20 12 1:25PM BY SHAHID BOWIE MA, FAVIAN ON/ADDEN DUM Amber D'Alessan merna null, [facility] 6 11:24:43 Adult health examinat ion Completed 201205/17/2014 RECORDED 02/20/20 13 10:03AM BY NITISH BAEZ MA, FAVIAN ON/ADDEN DUM Amber D'Alessan merna null, [facility] 6 11:24:43 General examinat ion of patient Completed 200705/17/2014 RECORDED 08/10/20 08 2:54PM BY HILLARY ARENAS MA, ANNOTATI ON/ADDEN DUM Amber SaigeAleannarobert merna null, [facility] 6 11:24:43 Influenz a with respirat ory manifest ation other than pneumoni a Completed 201105/17/2014 STORY: CLINICAL DX. FEVER/MY LAGIA/CUMMINGS ; RECORDED 06/10/20 12 1:26PM BY SHAHID BOWIE MA, ANNOTATI ON/ADDEN DUM Amber TessaArmandoAleannarobert merna null, [facility] 6 11:24:43 Low back pain 524963151 Completed 201205/17/2014 RECORDED 05/26/20 13 9:50AM BY NITISH BAEZ MA, ANNOTATI ON/ADDEN DUM Tran Kaplan MA null, [facility] 6 08:58:09 Lumbar sprain 203013764 Completed 200805/17/2014 RECORDED 06/18/20 09 11:34AM BY JOLLY BOSSATI ON/[facility] Amber TessaArmandoAleannarobert merna null, [facility] 6 11:24:43 Screenin g for malignan t neoplasm of breast Completed 201305/17/2014 RECORDED 01/12/20 14 11:25AM BY NITISH BAEZ MA, JOLLYATI ON/ADDEN DUM Amber TessaMarlenroebrt merna null, [facility] 6 11:24:43 Shoulder joint pain 069540152 Completed 201105/17/2014 IMPRESSI ON: R SHOULDER , SUSPECT AN OVERUSE SECONDAR Y TO WORK ACTIVITI ES. 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 CALL FOR WORSENIN G OR IF NO BETTER IN 1 WEEK.; RECORDED 06/10/20 12 1:26PM BY SHAHID BOWIE MA, ANNOTGUILLERMO ON/ADDEN DUM Amber MoultonAleannarobert merna null, [facility] 6 11:24:43 Sciatic nerve lesion 162034172 Completed 201105/17/2014 RECORDED 06/10/20 12 1:25PM BY SHAHID BOWIE MA, ANNOTATI ON/ADD DUM Amber wheeler, [facility] 6 11:24:43 Chronic sinusiti s 41982045 Completed 201105/17/2014 RECORDED 06/10/20 12 1:26PM BY SHAHID BOWIE MA, ANNOTATI ON/ADDEN DUM Amber platt null, [facility] 6 11:24:43 Toxic effect of venom 57276864 Completed 201105/17/2014 IMPRESSI ON: L ARM WITH WHAT APPEARS TO BE A MODERATE LOCALIZE D ALLERGIC RXN. NO SIGNS OF SECONDAR Y INFEC. PT TO CONTINUE WITH ICE COMPRESS ES AND WILL START ON BENADRYL . MAY ALSO USE TOPICAL HYDROCOR TISONE FOR SX RELIEF. MONITOR SXS AT HOME AND F/U PRN IF ANY WORSENIN G.; RECORDED 06/10/20 12 1:25PM BY SHAHID BOWIE MA, ANNOTATI ON/ADD DUM Amber wheeler, [facility] 6 11:24:43 Syncope and collapse 043894627 Completed 201105/17/2014 RECORDED 06/10/20 12 1:26PM BY SHAHID BOWIE MA, ANNOTATI ON/ADDEN DUM Hillary singer MA null, [facility] 0 15:59:02 Viral disease 55893921 Completed 201105/17/2014 RECORDED 06/10/20 12 1:26PM BY SHAHID BOWIE MA, ANNOTATI ON/ADD DUM Amber wheeler, [facility] 6 11:24:43 Eruption 569341624 Completed 07/20/2014 Amber wheeler, [facility] 6 11:24:43 Costal chondrit is 76911543 Active Amber wheeler [facility] 6 11:24:43 Allergic rhinitis 59146041 Completed 09/14/2016 Tran wheeler, [facility] 6 08:58:14 Atypical chest pain 533193887 Completed 09/14/2016 Padmini Kline PA-C [address], [place], [address], [facility] 14:02:56 Panic attack 216461705 Completed 09/14/2016 Tran wheeler [facility] 6 08:58:00 Low back pain 245851899 Completed 09/14/2016 Tran wheeler, [facility] 6 08:58:09 Major depressi ve disorder 142398372 Completed 10/24/2018 Padmini CASIANO-C [address], [place], [address], [facility] 9 17:28:29 Anxiety 64072803 Completed 09/14/2016 Tran wheeler [facility] 6 08:58:29 Severe anxiety (panic) 49055667 Completed 10/24/2018 Padmini CASIANO-C [address], [place], [address], [facility] 9 14:24:29 Headache 39787707 Completed 09/14/2016 Tran wheeler [facility] 6 08:58:03 Hyperlip idemia 52612823 Completed 01/06/2019 Padmini Kline PA-C [address], [place], [address], [facility] 9 15:03:44 Moderate recurren t major depressi on 95229755 Completed 201803/28/2021 Padmini Kline PA-C [address], [place], [address], [facility] 1 14:45:34 Posttrau matic stress disorder 95762245 Active 2018 Padmini Ozzy MT-C [address], [place], [address], [facility] 9 17:26:51 Impaired fasting glycemia 774797154 Completed 201802/04/2019 Padmini Ozzy MT-C [address], [place], [address], [facility] 9 13:33:05 Elevated blood-pr essure reading without diagnosi s of hyperten arnold 745265827 Completed 201804/13/2019 Padmini Ozzy MT-C [address], [place], [address], [facility] 9 14:10:26 Atypical chest pain 761825649 Active 2018 Padmini Kline MT- [address], [place], [address], [facility] 9 14:02:56 Cardiova scular stress test abnormal 348298667 Active 2018 Padmini Kline MT-C [address], [place], [address], [facility] 9 16:25:07 [facility]ia l hyperten arnold 01593414 Active 2018 Padmini Kline MT- [address], [place], [address], [facility] 9 14:10:32 Multiple nodules of lung 286144284 Active [address] [facility] 12/14/19 Padmini Kline MT-C [address], [place], [address], [facility] 0 15:04:25 Syncope and collapse 864260210 Active 2019 Hillary singer MA null, [facility] 0 15:59:02 Obesity 955263380 Active 2019 Sneha Barth null, [facility] 0 11:25:12 Suspecte d COVID-19 417842211 Completed 03/01/2021 Removal Reason: Problem added by user john Ferris from the COVID-19 watch flag Camila Chase null, [facility] 1 15:29:52 Severe recurren t major depressi on without psychoti c features 35924168 Active 2020 Padmini Kline PA-C [address], [place], [address], [facility] 1 14:45:49 Body mass index 30+ - obesity 921796485 Active 2020 Padmini Kline PA-C [address], [place], [address], [facility] 1 15:19:50 Steatosi s of liver 356924801 Active 2021 Stacie Rose null, [facility] 2 14:53:18 Vitamin D deficien cy 29074354 Active 2022 Padmini Kline PA-C [address], [place], [address], [facility] 14:58:21 Snoring 03865965 Active 2023 Samantha Eduardo null, [facility] 4 14:13:58 Type 2 diabetes mellitus without complica tion 479671029 Active 2023 new onset Padmini Kline PA-C [address], [place], [address], [facility] 4 15:28:34 Mixed hyperlip idemia 942735691 Active 2023 Padmini Kline PA-C [address] [facility] [address], [place], [address], [facility] 14:55:20 Problem Notes None recorded. Procedures Surgical History Date Name Laterality Status Provider Name and Address Organization Details Recorded Time 08/08/20 24 Most Recent Mammogram completed Kristen De Anda [facility] 08/10/2024 09:05:40 07/26/20 21 Knee arthroscopy/surg samreen completed Evelyn Cartagena [facility] 04/04/2022 10:01:42 07/25/20 21 Mammogram one breast completed Winter Barth [facility] 09/21/2021 14:47:35 10/07/19 21 Date of Last Pap Smear completed Svetlana Mendoza MA [facility] 03/28/2021 14:21:00 06/23/20 20 Ultrasound breast limited completed Darlin Caruso [facility] 06/24/2020 08:35:06 06/20/20 20 Mammogram screening completed Darlin Caruso [facility] 06/21/2020 08:57:57 10/07/19 20 Endometrial Biopsy completed Hillary schmitt MA [facility] 03/30/2022 14:26:36 08/12/19 96 Tubal Ligation completed Hilalry schmitt MA [facility] 03/30/2022 14:26:36 Hysterectomy completed Hillary schmitt MA [facility] 05/11/2014 16:19:39 Endometrial Ablation completed Hillary schmitt MA [facility] 05/11/2014 16:19:39 Imaging Results Imaging Date Name Status LastModified by Organiz ation Details LastModified Time 07/23/2024 NM, myocardial perfusion scan, w/ stress completed [facility] (Medical Records) [address] [facility], [place], [address], 07/24/2024 15:09:56 07/23/2024 NM, myocardial perfusion scan, w/ stress completed [facility] (Medical Records) [address] [facility] [address], [place], [address], 08/10/2024 21:44:08 08/09/2024 MAMMO, screening, digital, bilateral completed [facility] [address] [facility] [address] [place], [address], 08/10/2024 09:05:45 08/08/2024 MAMMO, screening, digital, bilateral completed [facility] (Outpt Imaging) [address] [place], [address], 08/10/2024 09:05:45 08/18/2024 US, breast, unilateral completed [facility] [address] [facility] [place], [address], 08/18/2024 10:08:12 08/18/2024 US, breast, limited completed [facility] (Outpt Imaging) [address] [place], [address], 08/18/2024 09:51:21 08/18/2024 mm digital mammo unilat left completed [facility] (Outpt Imaging) [address] [place], [address], 11/11/2024 14:50:42 Procedure Notes None recorded. Medical Equipment None Reported. Allergies No known drug allergies Medications Name Sig Start Date Stop Date Status Note LastModified by Organization Details LastModified Time gabapenti n 400 mg caps 09/14 completed Not Available Not Available Not Available prazosin hcl 1 mg caps active Not Available Not Available Not Available buspirone hcl 10 mg tabs active Not Available Not Available Not Available clonazepa m 1 mg tabs active Not Available Not Available Not Available lorazepam 0.5 mg tabs active Not Available Not Available Not Available fluoxetin e hcl 20 mg caps active Not Available Not Available Not Available bupropion hcl sr 100 mg tb12 active Not Available Not Available Not Available trazodone hcl 100 mg tabs active Not Available Not Available Not Available lorazepam 1 mg tabs active Not Available Not Available No t Available gabapenti n 300 mg caps 3 times daily active Not Available Not Available No t Available ibuprofen 600 mg tabs active Not Available Not Available Not Available paroxetin e hcl 40 mg tabs active Not Available Not Available Not Available trazodone hcl 150 mg tabs 09/14 completed Not Available Not Available Not Available fluoxetin e 40 mg capsule DAILY 2013 active RECORDED 03/08/20 14 11:49AM BY AMBER PLATT MD, OFFICE VISIT; Not Available Not Available Not Available cyclobenz aprine 10 mg tablet AT BEDTIME 07/15 completed RECORDED 10/04/20 11 10:41AM BY AMBER PLATT MD, MEDICATI ON AUTO-BRI CTIVATIO N; Not Available Not Available Not Available amoxicill in 500 mg capsule 09/17 completed Not Available Not Available Not Available atorvasta tin 40 mg tablet TAKE 1 TABLET BY MOUTH EVERY DAY active Not Available Not Available No t Available bupropion HCl SR 150 mg tablet,12 hr sustained -release Take 1 tablet every day by oral route as needed for 30 days. 11/07 completed Not Available Not Available Not Available diclofena c 3 % topical gel Apply 2-3 gm topicall y, up to 4 times daily. active Not Available Not Available No t Available clonidine HCl 0.1 mg tablet TAKE 1 TABLET BY MOUTH TWICE A DAY FOR ANXIETY AND HOT FLASHES active Not Available Not Available No t Available prednison e 10 mg tablet PLEASE SEE ATTACHED FOR DETAILED DIRECTIO NS 01/16 completed Not Available Not Available Not Available gabapenti n 600 mg tablet TAKE 1 TABLET BY MOUTH TWICE A DAY FOR ANXIETY AND NERVE PAIN active Not Available Not Available No t Available paroxetin e 10 mg tablet Take 1 tablet every day by oral route for 30 days. 03/11 completed Not Available Not Available Not Available clindamyc in HCl 300 mg capsule 10/24 completed Not Available Not Available Not Available trazodone 50 mg tablet 11/11 completed Not Available Not Available Not Available cetirizin e 10 mg tablet Take 1 tablet every day by oral route for 90 days. 11/16 completed Not Available Not Available Not Available prazosin 1 mg capsule TAKE 1 CAPSULE BY MOUTH EVERY NIGHT AT BEDTIME 08/11 completed Not Available Not Available Not Available promethaz ine 25 mg rectal supposito ry 09/17 completed Not Available Not Available Not Available meloxicam 15 mg tablet TAKE 1 TABLET BY MOUTH EVERY DAY 06/27 completed Not Available Not Available Not Available ondansetr on HCl 4 mg tablet TAKE 1 TABLET BY MOUTH EVERY 6 TO 8 HOURS NEEDED FOR NAUSEA DIRECTED . 03/30 completed Not Available Not Available Not Available clonazepa m 0.5 mg tablet TAKE 1 TABLET BY MOUTH EVERY NIGHT AT BEDTIME NEEDED 11/11 completed Not Available Not Available Not Available gabapenti n 400 mg capsule Take 1 capsule 3 times a day by oral route as directed for 30 days. 07/14 completed Not Available Not Available Not Available sertralin e 100 mg tablet TAKE 1 TABLET BY MOUTH EVERY DAY IN THE MORNING active Not Available Not Available No t Available Zithromax Z-Pedro 250 mg tablet QD 12/03 completed RECORDED 01/24/20 11 1:17PM BY NAIDA UNDERWOOD PA-C, MEDICATI ON AUTO-BRI CTIVATIO N;2PO QD FOR 1 DAY, THEN 1 QD FOR 4 DAYS. Not Available Not Available Not Available naproxen 250 mg tablet TAKE 1 TABLET BY MOUTH TWICE A DAY 11/16 completed Not Available Not Available Not Available permethri n 5 % topical cream APPLY (THOROUG HLY MASSAGE INTO SKIN FROM HEAD TO SOLES OF FEET) BY TOPICAL ROUTE ONCE LEAVE ON FOR 8-14 HR, THEN REMOVE BY THOROUGH WASHING active Not Available Not Available No t Available metronida zole 500 mg tablet TAKE 1 TABLET BY MOUTH TWICE A DAY FOR 7 DAYS 12/09 completed Not Available Not Available Not Available amlodipin e 5 mg tablet TAKE 1 TABLET BY MOUTH EVERY DAY active Not Available Not Available No t Available sulfameth oxazole 800 mg-trimet hoprim 160 mg tablet 09/17 completed Not Available Not Available Not Available tramadol 50 mg tablet THREE TIMES DAILY 2012 active RECORDED 02/20/20 13 10:50AM BY AMBER PLATT MD, OFFICE VISIT; Not Available Not Available Not Available quetiapin e 100 mg tablet TAKE 1/2 TO 1 TABLET BY MOUTH AT BEDTIME NEEDED FOR SLEEP 06/10 completed Not Available Not Available Not Available bupropion HCl SR 100 mg tablet,12 hr sustained -release TAKE 1 TABLET BY MOUTH EVERY DAY AT BEDTIME 09/14 completed Not Available Not Available Not Available ketorolac 10 mg tablet 09/14 completed Not Available Not Available Not Available hydrocort isone 2.5 % topical cream with perineal applicato r APPLY 1 APPLICAT ION RECTALLY 1 2 TIMES A DAY 14 DAYS 11/16 completed Not Available Not Available Not Available amoxicill in 875 mg tablet TWO TIMES DAILY 10/14 completed RECORDED 03/06/20 12 2:53PM BY NAIDA UNDERWOOD PA-C, MEDICATI ON AUTO-BRI CTIVATIO N; Not Available Not Available Not Available famotidin e 20 mg tablet TAKE 1 TABLET BY MOUTH TWICE A DAY active Not Available Not Available No t Available lorazepam 0.5 mg tablet Take 1 tablet 3 times a day by oral route as directed for 10 days. 11/07 completed Not Available Not Available Not Available methocarb payton 750 mg tablet TAKE 1 TABLET BY MOUTH EVERY 6 HOURS NEEDED FOR MUSCLE SPASM 11/11 completed Not Available Not Available Not Available trazodone 100 mg tablet TAKE 1 TABLET BY MOUTH EVERY NIGHT AT BEDTIME FOR INSOMNIA active Not Available Not Available No t Available hydrocort isone 1 % topical cream APPLY TO AFFECTED AREA TWICE A DAY 03/30 completed Not Available Not Available Not Available hydrocodo ne 7.5 mg-acetam inophen 325 mg tablet Take 2 tablets every day by oral route at bedtime for 5 days. 01/06 completed Not Available Not Available Not Available paroxetin e 20 mg tablet TAKE 1 AND 1/2 TABLET BY MOUTH EVERY DAY 11/16 completed Not Available Not Available Not Available trazodone 150 mg tablet Take 1 tablet every day by oral route at bedtime for 30 days. 11/07 completed Not Available Not Available Not Available fluoxetin e 20 mg tablet Take 1 tablet every day by oral route. 11/16 completed Not Available Not Available Not Available nystatin 100,000 unit/gram topical cream APPLY TO AFFECTED AREA TWICE A DAY 11/16 completed Not Available Not Available Not Available calcipotr iene 0.005 % topical cream Apply 3-4gm topicall y twice a day; rub it in gently and complete . active Not Available Not Available No t Available buspirone 10 mg tablet TAKE 1 TABLET(S ) 3 TIMES A DAY BY ORAL ROUTE FOR 30 DAYS. 2014 active Not Available Not Available Not Avai lable diphenhyd ramine 25 mg tablet EVERY 6 HOURS, NEEDED 02/06 completed RECORDED 02/23/20 11 3:56PM BY STEPHENIE BOB, MEDICATI ON AUTO-BRI CTIVATIO N; Not Available Not Available Not Available ferrous gluconate 240 mg (27 mg iron) tablet DAILY 06/15 completed RECORDED 06/15/20 11 3:09PM BY JAKY HOWE MA, OFFICE VISIT; Not Available Not Available Not Available indometha jordana 50 mg capsule TAKE 1 CAPSULE BY MOUTH 3 TIMES A DAY NEEDED FOR PAIN 03/30 completed Not Available Not Available Not Available trazodone 300 mg tablet TAKE 1 TABLET BY MOUTH EVERYDAY AT BEDTIME 11/11 completed Not Available Not Available Not Available betametha sone dipropion ate 0.05 % topical cream APPLY TO AFFECTED AREA TWICE A DAY active Not Available Not Available No t Available gabapenti n 300 mg capsule TAKE ONE CAPSULE BY MOUTH 3 TIMES A DAY 09/14 completed Not Available Not Available Not Available diclofena c sodium 75 mg tablet,de layed release TAKE 1 TABLET BY MOUTH TWICE A DAY WITH FOOD 11/16 completed Not Available Not Available Not Available hydroxyzi ne HCl 25 mg tablet Take 1-2 tablet(s ) every 6 hrs as needed for itching. caution drowsine ss active Not Available Not Available No t Available Iophen C-NR 10 mg-100 mg/5 mL oral liquid Take 10 mL EVERY 4 HOURS as needed for cough active Not Available Not Available No t Available hydrochlo rothiazid e 25 mg tablet TAKE 1 TABLET BY MOUTH EVERY DAY 01/31 completed pt reports med was given in hospital Not Available Not Available Not Available ergocalci ferol (vitamin D2) 1,250 mcg (50,000 unit) capsule TAKE 1 CAPSULE BY MOUTH EVERY WEEK active Not Available Not Available No t Available lorazepam 1 mg tablet TAKE 2 TABLETS BY MOUTH EVERY DAY AT BEDTIME 01/06 completed Not Available Not Available Not Available Tylenol-C odeine #3 300 mg-30 mg tablet EVERY 6 HOURS NEEDED 03/13 completed RECORDED 04/03/20 12 2:52PM BY NICKO BAEZ PA-C, MEDICATI ON AUTO-BRI CTIVATIO N; Not Available Not Available Not Available ibuprofen 600 mg tablet TAKE 1 TABLET BY MOUTH FOUR TIMES A DAY NEEDED FOR PAIN 03/30 completed Not Available Not Available Not Available methylpre dnisolone 4 mg tablets in a dose pack TAKE 6 TABLETS ON DAY 1 DIRECTED ON PACKAGE AND DECREASE BY 1 TAB EACH DAY FOR A TOTAL OF 6 DAYS 08/11 completed Not Available Not Available Not Available paroxetin e 40 mg tablet TAKE 1 TABLET BY MOUTH EVERYDAY AT BEDTIME REFILL ABLE 07/28 01/31 completed Not Available Not Available Not Available fluoxetin e 20 mg capsule TAKE 2 CAPSULES (40 MG) BY MOUTH EVERY DAY 09/14 completed Not Available Not Available Not Available fluticaso ne propionat e 50 mcg/actua tion nasal spray,joanne pension [place] 2 sprays every day by intranas al route each nostril for 90 days. 10/24 completed Not Available Not Available Not Available metformin ER 500 mg tablet,ex tended release 24 hr TAKE 1 TABLET BY MOUTH EVERY DAY 11/11 completed low A1c Not Available Not Available Not Available sertralin e 50 mg tablet TAKE 1/2 TABLET BY MOUTH EVERY MORNING FOR 2 WEEKS THEN INCREASE TO 1 TABLET. 11/16 completed Not Available Not Available Not Available doxepin 5 % topical cream Apply 1-2 gm topicall y, 3 times a day to affected area. If feeling drowsy, apply at bed time. active Not Available Not Available No t Available medroxypr ogesteron e 150 mg/mL intramusc ular suspensio n 03/11 completed Not Available Not Available Not Available naproxen 500 mg tablet TAKE 1 TABLET BY MOUTH TWO TIMES A DAY FOR 5 DAYS 01/16 completed Not Available Not Available Not Available amoxicill in 875 mg-potass ium clavulana te 125 mg tablet BID 09/17 completed Not Available Not Available Not Available buspirone 15 mg tablet Take 1 tablet 3 times a day by oral route for 30 days. 2014 active Not Available Not Available Not Avai lable oxycodone 5 mg tablet TAKE 1 TABLET BY MOUTH EVERY 4 TO 6 HOURS NEEDED FOR PAIN DIRECTED . (DO NOT DRIVE WHILE ON THIS MEDICATI ON) 01/16 completed Not Available Not Available Not Available Laxative (bisacody l) 5 mg tablet,de layed release TAKE 4 TABLETS BY MOUTH ONCE FOR 1 DAY TAKE 4 TABS AT NOON THE DAY BEFORE YOUR COLONOSC OPY active Not Available Not Available No t Available clonazepa m 0.25 mg disintegr ating tablet TAKE 1 TABLET BY MOUTH TWICE A DAY MAY TAKE AN EXTRA TABLET FOR ANXIETY NEEDED. 11/16 completed Not Available Not Available Not Available Prilosec OTC 20 mg tablet,de layed release QD 02/16 completed RECORDED 02/21/20 07 9:51AM BY LOY FERNANDES, MEDICATI ON AUTO-BRI CTIVATIO N; Not Available Not Available Not Available bupropion HCl XL 300 mg 24 hr tablet, extended release TAKE 1 TABLET BY MOUTH EVERY DAY IN THE MORNING active Not Available Not Available No t Available bupropion HCl XL 150 mg 24 hr tablet, extended release TAKE 1 TABLET BY MOUTH EVERY DAY IN THE MORNING 06/10 completed Not Available Not Available Not Available Prempro 0.3 mg-1.5 mg tablet TAKE 1 TABLET BY MOUTH EVERY DAY 10/05 completed Not Available Not Available Not Available nitrofura ntoin monohydra te/macroc rystals 100 mg capsule Take 1 mg every day by oral route for 7 days. 10/24 completed Not Available Not Available Not Available fluocinon kira 0.1 % topical cream Apply 2-4gm up to 4times daily to affected area. active Not Available Not Available No t Available chlorhexi dine gluconate 0.12 % mouthwash PLEASE SEE ATTACHED FOR DETAILED DIRECTIO NS 06/27 completed Not Available Not Available Not Available Vicodin EVERY SIX HOURS, NEEDED 03/25 completed RECORDED 06/10/20 09 11:57AM BY AMBER PLATT MD, MEDICATI ON AUTO-BRI CTIVATIO N; Not Available Not Available Not Available omeprazol e DAILY 06/15 completed RECORDED 06/15/20 11 3:09PM BY JAKY HOWE MA, OFFICE VISIT; Not Available Not Available Not Available naproxen EVERY 12 HOURS NEEDED 04/05 completed RECORDED 04/18/20 12 1:54PM BY NICKO BAEZ PA-C, MEDICATI ON AUTO-BRI CTIVATIO N; Not Available Not Available Not Available Guiatuss AT BEDTIME 12/05 completed RECORDED 01/24/20 11 1:17PM BY NAIDA UNDERWOOD PA-C, MEDICATI ON AUTO-BRI CTIVATIO N; Not Available Not Available Not Available cyclobenz aprine 7.5 mg tablet Take 1-2 tablets by mouth up to 3 times daily for pain active Not Available Not Available No t Available Gavilax 17 gram/dose oral powder 238 G ORALLY ONCE DIRECTED BY GASTROEN TEROLOGY DEPARTME NT AT [facility] active Not Available Not Available No t Available naproxen sodium ER (CR) 375 mg tablet,ex tended release 24 hr mphase Take 1-2 tablets orally, 3 times a day. Do not exceed 3 tablets in a 24 hour period. active Not Available Not Available No t Available lidocaine 5 % topical ointment Apply 2-3 gm 3-4 times daily to affected area. Do not exceed 8 gm a day. active Not Available Not Available No t Available bupropion HCl XL 450 mg 24 hr tablet, extended release TAKE 1 TABLET BY MOUTH EVERY DAY IN THE MORNING 08/11 completed Not Available Not Available Not Available Vanatol LQ 50 mg-325 mg-40 mg/15 mL oral solution Take 1 to 2 tablespo ons by mouth (15mL or 30 mL) every 4 hours as needed for migraine . active Not Available Not Available No t Available Xyzbac 1 mg-5 mg-50 mg tablet dipti 1 or 2 capsules daily active Not Available Not Available No t Available Fluarix Quad 6902-1817 (PF) 60 mcg (15 mcg x 4)/0.5 mL IM syringe 09/14 completed Not Available Not Available Not Available Wegovy 0.25 mg/0.5 mL subcutane ous pen injector Inject 0.25 mg every week by subcutan eous route for 30 days. 11/11 completed Not Available Not Available Not Available Wegovy 0.5 mg/0.5 mL subcutane ous pen injector Inject 0.5 mg every week by subcutan eous route for 30 days. 11/11 completed Not Available Not Available Not Available Ozempic 0.25 mg or 0.5 mg (2 mg/3 mL) subcutane ous pen injector INJECT 0.25 MG EVERY WEEK BY SUBCUTAN EOUS ROUTE FOR 30 DAYS. active Not Available Not Available No t Available Vitals Date Recorded Body height Body mass index (BMI) Body weight Heart rate Oxygen saturation Oxygen saturation in Arterial blood by Pulse oximetry Body temperature Systolic blood pressure Diastolic blood pressure Provider Name and Address Organization Details Last Updated DateTime 4 147.95 cm 36.6 kg/m2 14068.0 6 g 77 /min 95 % 95 % 97.9 [degF] 121 mm[Hg] 80 mm[Hg] Naida Jesus [facility] 4 13:13:27 Date Recorded Body height Body mass index (BMI) Body weight Heart rate Oxygen saturation Oxygen saturation in Arterial blood by Pulse oximetry Body temperature Systolic blood pressure Diastolic blood pressure Provider Name and Address Organization Details Last Updated DateTime 4 147.95 cm 36 kg/m2 49938.2 8 g 65 /min 98 % 98 % 98.6 [degF] 123 mm[Hg] 78 mm[Hg] Alexandria Stringer LPN [facility] 4 13:14:54 Date Recorded Body height Body mass index (BMI) Body weight Heart rate Oxygen saturation Oxygen saturation in Arterial blood by Pulse oximetry Body temperature Systolic blood pressure Diastolic blood pressure Provider Name and Address Organization Details Last Updated DateTime 4 147.95 cm 35.8 kg/m2 46960.4 8 g 81 /min 97 % 97 % 98.4 [degF] 114 mm[Hg] 76 mm[Hg] Alexandria Stringer LPN [facility] 4 14:45:06 Date Recorded Body height Body mass index (BMI) Body weight Heart rate Oxygen saturation Oxygen saturation in Arterial blood by Pulse oximetry Body temperature Systolic blood pressure Diastolic blood pressure Provider Name and Address Organization Details Last Updated DateTime 4 147.95 cm 35.6 kg/m2 17456.8 9 g 60 /min 98 % 98 % 97.9 [degF] 119 mm[Hg] 73 mm[Hg] Alexandria Stringer LPN [facility] 4 13:46:24 Date Recorded Body height Body mass index (BMI) Body weight Heart rate Oxygen saturation Oxygen saturation in Arterial blood by Pulse oximetry Body temperature Systolic blood pressure Diastolic blood pressure Provider Name and Address Organization Details Last Updated DateTime 5 147.95 cm 32.1 kg/m2 42286.8 2 g 71 /min 97 % 97 % 97.7 [degF] 108 mm[Hg] 68 mm[Hg] Hillary singer MA [facility] 5 14:10:38 Social History Question Answer Notes LastModified by Organizat ion Details LastModified Time Tobacco Smoking Status Never Smoker Hillary Alonso MA [facility] 05/11/2014 16:18:11 Do You Have An Advance Directive? No Information not available 03/30/2022 What Is Your Level Of Alcohol Consumption? None Information not available 05/11/2014 Is Blood Transfusion Acceptable In An Emergency? Yes Information not available 04/29/2015 What Is Your Level Of Caffeine Consumption? Moderate 2 Cups Of Coffee Daily Information not available 03/30/2022 How Much Tobacco Do You Chew? None Information not available 04/29/2015 In The 14 Days Before Symptom Onset, Have You Had Close Contact With A Laboratory-confi rmed COVID-19 While That Case Was Ill? No Information not available 03/30/2022 In The 14 Days Before Symptom Onset, Have You Had Close Contact With A Person Who Is Under Investigation For COVID-19 While That Person Was Ill? No Information not available 03/30/2022 Have You Been To An Area Known To Be High Risk For COVID-19? Yes Information not available 03/30/2022 Are You Currently Employed? No Retired November 2019 Information not available 05/11/2014 What Type Of Diet Are You Following? REGULAR Information not available 05/11/2014 Which Illicit Or Recreational Drugs Have You Used? N/a Information not available 04/29/2015 Do You Or Have You Ever Used E-cigarettes Or Vape? Never Used Electronic Cigarettes Information not available 03/30/2022 What Is Your Occupation? Former [employer] Information not available 02/04/2019 Live Alone Or With Others? With Others Father And Brother (disabled) Information not available 03/30/2022 Do You Take Precautions To Prevent Distracted Driving? Yes Information not available 04/29/2015 How Often Do You Need To Have Someone Help You When You Read Instructions, Pamphlets, Or Other Written Material From Your Doctor Or Pharmacy? Never Information not available 09/14/2016 Have You Served In The ? No Information not available 09/14/2016 Have You Or Anyone In Your Household Had Any Of The Following Symptoms In The Last 14 Days: Sore Throat, Cough, Chills, Body Aches For Unknown Reasons, Shortness Of Breath For Unknown Reasons, Loss Of Smell, Loss Of Taste, Fever At Or Greater Than 100 Degrees Fahrenheit? No Information not available 07/13/2020 Are You Or Anyone In Your Household A Health Care Provider Or Emergency Responder? Yes Information not available 07/13/2020 To The Best Of Your Knowledge Have You Been In Close Proximity To Any Individual Who Tested Positive For COVID-19? No Information not available 07/13/2020 Have You Recently Traveled To A COVID-19 High Risk Area Or Gathering In The Last 10 Days? No Information not available 11/16/2020 What Was The Date Of Your Most Recent Tobacco Screening? 06/10/2024 [email or web address] Information not available 06/10/2024 How Many Children Do You Have? 5 Information not available 05/11/2014 Seat Belts Used Routinely Yes Information not available 03/30/2022 Smoke Alarm In Home Yes Information not available 03/30/2022 At What Age Did You Start Smoking Tobacco? 0 Information not available 04/29/2015 Are You Passively Exposed To Smoke? Yes Information not available 03/30/2022 Do You Or Have You Ever Used Smokeless Tobacco? Never Used Smokeless Tobacco Information not available 03/11/2020 How Much Tobacco Do You Smoke? No Information not available 05/11/2014 General Stress Level High Support From Friend Sharon Information not available 03/30/2022 Do You Use Any Illicit Or Recreational Drugs? No Information not available 03/30/2022 Do You Use Sunscreen Routinely? Yes Information not available 04/29/2015 How Many Years Have You Smoked Tobacco? 0 Information not available 04/29/2015 Do You Or Have You Ever Used Any Other Forms Of Tobacco Or Nicotine? No Information not available 03/30/2022 Sex: Unknown Functional Status Question Answer Note LastModified by Organizat ion Details LastModified Time Are you able to walk? YESWOREST Information not available 03/30/2022 Are you able to care for yourself? Yes boyfriend; (Jay Monahan) Oct 2015 Information not available 03/30/2022 What is your exercise level? None Information not available 03/30/2022 Mental Status None recorded. Family History Relationship Description Onset Age of this Age Resolved Age Notes LastModified by Organization Details LastModified Time Mother Malignant neoplasm of body of uterus [email or web address] s Not available 03/30/2022 14:26:34 Mother Asthma Mom age 46/[place] [email or web address] s Not available 03/30/2022 14:26:34 Mother Myocardial infarction 46 [email or web address] s Not available 03/30/2022 14:26:34 Mother Anemia [email or web address] s Not available 03/30/2022 14:26:34 Father Diabetes mellitus 71 [email or web address] s Not available 03/30/2022 14:26:34 Father Alzheimer's disease 78 [email or web address] Not available 06/10 13:17:31 Brother Diabetes mellitus 40 type 2 [email or web address] s Not available 03/30/2022 14:26:34 Brother Kidney disease 50 [email or web address] Not available 2021 15:03:35 Unspecified Relation Asthma [email or web address] s Not available 03/30/2022 14:26:34 Unspecified Relation Diabetes mellitus [email or web address] s Not available 03/30/2022 14:26:34 Medical History Condition Response Coronary Artery Disease N Gout N Other Y Blood Diseases N Kidney Stones N Hyperthyroidism N Breast Cancer N mrsa exposure N Lung Disease N COPD N Depression Y Hypothyroidism N Defects or Inherited Disease N Developmental or Behavioral Disorders N Breast Problem N Anesthesia Complications N Headaches/Migraines N Anxiety Disorder Y Varicose Veins N Muscle, Joint, or Bone Problems N Obesity N Vision or Eye Problems N Arthritis N Head Injury/Concussion N Polyps N Infertility N Mental Disorder N Congenital Anomalies N Acid Reflux (GERD) Y Cancer N Stroke N ADHD N Endometriosis N High Cholesterol N Liver Disease N Fibromyalgia N Headaches N Kidney Disease N Heart Problems N Ear or Hearing Problems N Hospitalizations N Thyroid Problems N GI Problems N Developmental Delay N Acne N Eating Disorder N Skin Problems N Anemia Y Constipation N Bladder Problems N Mental Illness N Diabetes N Ovarian Cancer N Bedwetting N Blood Transfusions N Heart Problems/Murmur N Seizures/Epilepsy N Tuberculosis N AIDS/HIV N Congestive Heart Failure (CHF) N Eczema N Abuse/Domestic Violence N Diverticulitis N Asthma N Allergies N Reflux/GERD N Hepatitis N Heart Disease N Pulmonary Embolism N Hypertension Y Chicken Pox N Autism Spectrum Disorder (ASD) N Osteoporosis N Gynecological History Statement/Question Response Date of Last Pap Smear 10/07/2020 Date of Last Colonoscopy Most Recent Mammogram 08/08/2024 Obstetrics History GPAL:G 0 P 0 0 0 0 Immunizations Vaccine Type Date Status Note Provider Nam e and Address Organization Details Recorded Time Influenza, split virus, quadrivalent, preservative 6 completed Not Available [facility] 11/22/2023 10:20:44 COVID-19, mRNA, LNP-S, PF, 30 mcg/0.3 mL dose 1 completed KASIA Cardona, [facility] 01/16/2022 13:32:25 COVID-19, mRNA, LNP-S, PF, 30 mcg/0.3 mL dose 1 completed KASIA Cardona, [facility] 01/16/2022 13:32:25 Influenza, split virus, quadrivalent, PF 6 completed KASIA Onofre, [facility] 06/27/2022 09:12:07 zoster recombinant 2 completed KASIA Onofre, [facility] 06/27/2022 09:12:07 Influenza, split virus, quadrivalent, PF 7 completed KASIA Onofre, [facility] 06/27/2022 09:12:15 Tdap 6 completed KASIA Onofre, [facility] 06/27/2022 09:12:15 zoster recombinant 3 completed KASIA Lugo, [facility] 02/08/2023 10:08:18 Tdap 7 completed Not Available [facility] 04/20/2014 13:22:56 Influenza, split virus, trivalent, preservative 2 completed Not Available [facility] 04/20/2014 13:22:56 Influenza, split virus, trivalent, preservative 4 completed Not Available [facility] 04/20/2014 13:22:56 Past Encounters Encounter ID Performer Location Encounter Start Date Encounter Closed Date Diagnosis/Indication Diagnosis SNOMED-CT Code Diagnosis ICD10 Code Diagnosis Note [id number] Cain Main Office [address] [facility] [address] [facility] KASIA [id number] 05/11/2014 15:52:29 05/11/2014 17:02:02 Acute pharyngitis [id number] Acute uppe r respiratory infection 14542585 viral. call in 1 week if not improving. Contact de rmatitis caused by urushiol from [facility] [phone] call in 1 week if not improving. she will call if the sxs worsen and we can do prednisone [id number] [employer] [address] [place] [address] 01/17/2007 00:00:00 [id number] [employer] [address] [facility] [address] [place] [address] 01/17/2007 00:00:00 [id number] [employer] [address] [facility] [place] [address] 02/20/2007 00:00:00 [id number] [employer] [address] [facility],[address] [place] [address] 02/20/2007 00:00:00 [id number] [employer] [address] [facility],[address] [place] [address] 02/20/2007 00:00:00 [id number] [facility] [address] [facility],[address] [place] [address] 02/20/2007 00:00:00 [id number] [facility] [facility] [address] [facility],[address] [place] [address] 09/19/2007 00:00:00 [id number] [employer] [facility] [address] [facility],[address] [place] [address] 09/19/2007 00:00:00 [id number] [facility] [facility] [address] [facility],[address] [place] [address] 03/26/2008 00:00:00 [id number] [facility] [facility] [address] [facility],[address] [place] [address] 03/26/2008 00:00:00 [id number] [facility] [facility] [address] [facility],[address] [place] [address] 08/10/2008 00:00:00 [id number] [facility] [facility] [address] [facility],[address] [place] [address] 08/10/2008 00:00:00 [id number] [facility] [facility] [address] [facility],[address] [place] [address] 08/10/2008 00:00:00 [id number] [facility] [address] [place] [address] 08/10/2008 00:00:00 [id number] [facility] [address] [place] [address] 01/04/2009 00:00:00 [id number] [facility] [address] [place] [address] 01/04/2009 00:00:00 [id number] [facility] [address] [place] [address] 01/04/2009 00:00:00 [id number] [employer] [address] [facility] [address] [place] [address] 02/07/2009 00:00:00 [id number] [employer] [address] [facility],[address] [place] [address] 06/18/2009 00:00:00 [id number] [facility] [facility] [address] [facility],[address] [place] [address] 06/18/2009 00:00:00 [id number] [facility] [facility] [address] [facility],[address] [place] [address] 06/18/2009 00:00:00 [id number] [facility] [facility] [address] [facility],[address] [place] [address] 06/18/2009 00:00:00 [id number] [facility] [facility] [address] [facility],[address] [place] [address] 08/03/2009 00:00:00 [id number] [facility] [facility] [address] [facility],[address] [place] [address] 08/03/2009 00:00:00 [id number] [facility] [facility] [address] [facility],[address] [place] [address] 08/03/2009 00:00:00 [id number] [facility] [facility] [address] [facility],[address] [place] [address] 08/03/2009 00:00:00 [id number] [facility] [address] [facility] [address] [place] [address] 08/08/2009 00:00:00 [id number] [employer] [address] [place] [address] 08/08/2009 00:00:00 [id number] [employer] [address] [facility] [address] [place] [address] 08/08/2009 00:00:00 [id number] [facility] [facility] [address] [facility],[address] [place] [address] 08/08/2009 00:00:00 [id number] [facility] [address] [facility] [address] [place] [address] 10/25/2009 00:00:00 [id number] [facility] [facility] [address] [facility],[address] [place] [address] 10/25/2009 00:00:00 [id number] [facility] [facility] [address] [facility],[address] [place] [address] 10/25/2009 00:00:00 [id number] [facility] [facility] [address] [facility],[address] [place] [address] 02/21/2010 00:00:00 [id number] [facility] [facility] [address] [facility],[address] [place] [address] 02/21/2010 00:00:00 [id number] [facility] [facility] [address] [facility],[address] [place] [address] 07/20/2010 00:00:00 [id number] [facility] [facility] [address] [facility],[address] [place] [address] 07/20/2010 00:00:00 [id number] [facility] [facility]ce [address] [facility],[address] [place] [address] 10/03/2010 00:00:00 [id number] [facility] [facility] [address] [facility],[address] [place] [address] 10/03/2010 00:00:00 [id number] [facility] [address] [place] [address] 11/23/2010 00:00:00 [id number] [facility] [facility] [address] [place] [address] 11/23/2010 00:00:00 [id number] [facility] [facility] [address] [place] [address] 2 11/23/2010 00:00:00 [id number] [facility] [facility] [address] [facility] [address] [place] [address] 11/28/2010 00:00:00 [id number] [facility] [facility] [address] [facility] [address] [place] [address] 01/23/2011 00:00:00 [id number] [facility] erce [address] [facility],[address] [place] [address] 01/23/2011 00:00:00 [id number] [facility] [facility] [address] [facility],[address] [place] [address] 01/23/2011 00:00:00 [id number] [facility] [facility]ce [address] [facility],[address] [place] [address] 2 01/23/2011 00:00:00 [id number] [facility] erce [address] [facility],[address] [place] [address] 02/22/2011 00:00:00 [id number] [facility] [facility] [address] [facility],[address] [place] [address] 02/22/2011 00:00:00 [id number] auto[employer] erce [address] [facility] [address] [place] [address] 02/22/2011 00:00:00 [id number] [facility] erce [address] [facility],[address] [place] [address] 02/22/2011 00:00:00 [id number] [facility] erce [address] [facility] [address] [place] [address] 06/15/2011 00:00:00 [id number] [facility] erce [address] [facility] [address] [place] [address] 10/04/2011 00:00:00 [id number] [facility] [facility] [address] [facility] [address] [place] [address] 10/04/2011 00:00:00 [id number] [facility] [facility] [address] [place] [address] 03/06/2012 00:00:00 [id number] [facility] [facility]ce [address] [facility],[address] [place] [address] 03/06/2012 00:00:00 [id number] [facility] erce [address] [facility],[address] [place] [address] 06/10/2012 00:00:00 [id number] [facility] erce [address] [facility],[address] [place] [address] 02/19/2013 00:00:00 [id number] [facility] [facility]ce [address] [facility],[address] [place] [address] 02/19/2013 00:00:00 [id number] [facility] erce [address] [facility],[address] [place] [address] 02/19/2013 00:00:00 [id number] [facility] [facility]ce [address] [facility],[address] [place] [address] 07/07/2013 00:00:00 [id number] auto[facility]Comm erce [address] [facility],[address] [place] [address] 07/07/2013 00:00:00 [id number] [facility] erce [address] [facility],[address] [place] [address] 07/07/2013 00:00:00 [id number] [facility] erce [address] [facility],[address] [place] [address] 10/20/2013 00:00:00 [id number] [facility] erce [address] [facility],[address] [place], [place] [address] 11/05/2013 00:00:00 [id number] [facility] [facility]ce [address] [facility],[address] [place], [place] [address] 11/05/2013 00:00:00 [id number] auto[facility] erce [address] [facility],[address] [place], [place] [address] 01/11/2014 00:00:00 [id number] auto[facility] erce [address] [facility],[address] [place], [place] [address] 01/11/2014 00:00:00 [id number] autoEComm erce [address] [facility],[address] [place], [place] [address] 02/01/2014 00:00:00 [id number] auto[facility] erce [address] [facility],[address] [place], [place] [address] 02/01/2014 00:00:00 [id number] auto[facility]Comm erce [address] [facility],[address] [place], [place] [address] 03/08/2014 00:00:00 [id number] auto[employer]Comm erce [address] [facility],[address] [place], [place] [address] 03/08/2014 00:00:00 [id number] Main Office [address] [facility] [address] [place] [address] 07/21/2014 15:11:37 07/21/2014 16:27:51 Costal chondritis 38481114 reassuranc e. she is going through severe stress currently Suicidal behavior 566480262 psych crisis called and they are going to see her at [facility] now. I do know pt and do trust her to drive there after OV on her own. pt understand s importance of being seen now [id number] Priya Jiménez Main Office [address] [facility] [address] [place] [address] 08/12/2014 13:44:51 08/12/2014 14:23:50 Allergic rhinitis 84126343 [id number] Porfirio Werner Main Office [address] [facility] [address] [place] [address] 11/12/2014 14:20:06 11/12/2014 15:20:22 Atypical chest pain 940063147 Malaise and fatigue 767351497 Panic attack 568467409 I think pt has anxiety and depression and needs mental health support. next apt w/ [facility] staff nov 30 Single teri or depressive episode 193257597 dose of SSRI increased [id number] Porfirio Werner Main Office [address] [address] [facility] [place] [address] 12/28/2014 12:55:49 12/28/2014 13:44:25 Adult health examination 851359695 Panic diso rder without agoraphobia 54795644 pt using lorazepam w/ goal of decreasing or stopping this as buspar and SSRI med increase Single teri or depressive episode 499352240 dose of SSRI increased ( pt only using 20 mg/daily ) [id number] Gus Huerta Main Office [address] [address] [place] [address] 04/11/2015 09:31:00 05/10/2015 10:27:18 [id number] Amber lee Main Office [address] [place], [place] [address] 04/15/2015 11:28:32 04/15/2015 12:15:14 Single major depressive episode 834473971 Patient has counseling set-up Jessenia Pedro on 04/29 as well as visit with PCP 04/29, she had been seeing her a few months back but Jessenia was away on leave. Feels stable on current doses of medication s, she feels she has a good support system and has the number to the crisis line to use as needed. If you feel SI/HI please call the office, call a family member, the crisis line or go to ED. Suicidal behavior [id number] Follow-up encounter [id number] Gus Huerta Main Office [address] [address] [place] [address] 04/29/2015 10:31:25 04/29/2015 11:44:53 Single major depressive episode 309470225 dose of SSRI increased ( pt only using 20 mg/daily )/ hospitaliz ed for suicide attempt/ge sture. pt will continue w/ [facility] therapist Panic attack 084849031 I think pt has anxiety and depression and needs mental health support. next apt w/ [facility] staff nov 30 Insomnia 406840050 Low back pain 063815822 Panic diso rder without agoraphobia 83664129 pt using lorazepam w/ goal of decreasing or stopping this as buspar and SSRI med increase [id number] Amber lee Main Office [address] [facility] [address] [place] [address] 07/22/2015 14:13:28 07/22/2015 15:00:47 Panic attack 227203265 F41.0 I think pt has anxiety and depression and needs mental health support. She is aware today 07/22 that I will not prescribe her benzo due the fact that she used that med when she overdosed. Insomnia 916646558 G47.0 0 Single teri or depressive episode 675416295 F32.9 dose of SSRI increased ( pt only using 20 mg/daily )/ hospitaliz ed for suicide attempt/ge sture. pt will continue w/ [facility] therapist [id number] Jay Mauro MD Main Office [address] [address] [place] [address] 08/19/2015 15:24:12 08/19/2015 16:38:25 Major depressive disorder 712949820 F32.9 Sx have been worsening, patient denies SI. She is on 60mg of fluoxetine currently and takes 100mg trazodone at night, will add wellbutrin to her regimen until she can get in with Georgina Mckeon at [facility] for medication s. Patient was seen by Pat here in the office, she will see her Saturday and patient will call to schedule appointmen t with Georgina Mckeon. She has the crisis phone number, she will use it or go to ED if she needs it. I encouraged her t alos call her duaghters if she feels she wants to speak with them. Exercise can help with anxiety symptoms, lots of fluids, well balanced meals. F/U 08/30 as scheduled for recheck. Insomnia 028567447 G47.0 0 Not sleeping well despite trazodone and fluoxetone feel her sx are worse currently. Sleep hygiene discussed. [id number] Amber lee Main Office [address] [facility] [address] [place] [address] 02/21/2016 09:26:06 02/21/2016 10:34:19 Major depressive disorder 720573371 F32.9 Strongly encouraged patient to take all her meds today and NOT to skip doses of medication s as this contribute s to her feelign worse as well as not sleeping. She denies SI/ HI today, has crisis line access and her appointmen t with Pat PAUL was moved up to 10:30am (as she stated she would not come in for her 4pm appointmen t). Anxiety 63568765 F41.9 Discussed with PCP, will increase lorazepam to 0.5mg TID as needed. Discussed with patient as well and she denies SI (does have hx of one time occurrence - took too many lorazepam) , she will also restart all of her meds. F/U with PCP in 2 weeks. [id number] Leroy Acharya MD Main Office [address] [place] [address] 02/24/2016 14:54:57 02/24/2016 15:34:25 Major depressive disorder 818408312 F32.9 Aggravated by recent interactio ns with daughter telling her that she could not see her grandchild shon again, on top of husbands passing and recent SSRI transition . Has therapist and prescriber in place. Waiting for call back. Severe anx iety (panic) 68042233 F41.0 Benzo dose recently titrated. Headache 90451149 R51 Secondary to tension/wo rsening depression . Continue any one of the recently prescribed NSAIDS PRN. Advised not to use ibuprofen and ketorolac simultaneo usly. [id number] Camila Chase Main Office [address] [place] [address] 03/06/2016 10:18:35 03/06/2016 11:47:29 Headache 60176366 R51 pt may use OTC meds/ preferably tylenol Gastroesop hageal reflux disease 956745482 K21.9 Atypical chest pain 1025 76055 R07.89 Major depr essive disorder 448697174 F32.9 Prescriber Georgina Greenwood Panic diso rder without agoraphobia 73698520 F41.0 pt using lorazepam w/ goal of decreasing or stopping this as buspar and SSRI med increase Hyperlipidemia 52048376 E78.5 [id number] Amber lee Main Office [address] [place] [address] 09/14/2016 08:53:14 09/14/2016 09:49:40 Adult health examination 008132085 Z00.00 Administra tion of diphtheria, pertussis, and tetanus vaccine 302240383 Z23 Single teri or depressive episode 151178744 F32.4 Georgina PAUL therapist/ prescriber Body mass index 30+ - obesity 810132666 E66.9 [id number] Amber lee Main Office [address] [address] [place] [address] 10/05/2016 11:31:06 10/05/2016 16:43:00 [id number] Amber lee Main Office [address] [address] [place] [address] 09/16/2017 10:42:30 09/16/2017 15:32:44 [id number] Amber lee Main Office [address] [address] [place] [address] 09/17/2017 13:52:29 09/17/2017 14:50:20 Needs influenza immunization 266443710 Z23 Flu shot administer ed today 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 Patient educated on post-concu ssion syndrome, symptoms may persist for several weeks after inciting event. Call office if symptoms change or worsen. Contusion of nose 342622 04 S00.33XA Continue tylenol 650 mg t.i.d. as above for both headaches and nasal pain.Recom mend ice on and off for pain relief [id number] Amber lee Main Office [address] [address] [place] [address] 10/02/2017 09:46:33 10/02/2017 10:00:41 [id number] Amber lee Main Office [address] [address] [place] [address] 11/07/2017 09:38:30 11/07/2017 10:29:43 Adult health examination 417508109 Z00.00 Screening for malignant neoplasm of breast 561414933 Z12.39 Screening for malignant neoplasm of cervix 940843622 Z12.4 Allergic rhinitis 846796 04 J30.9 [id number] Padmini Kline PA-C Main Office [address] [facility] [address] [place] [address] 10/24/2018 13:58:25 10/24/2018 14:46:44 Moderate recurrent major depression 37529088 F33.1 Continue partial hospitaliz ation. Pt's care was discussed with coordinato r of the counseling and psych care at [facility] David Adan. Pt. has monster for physical scheduled in December. FMLA and disability forms will be completed. Posttrauma tic stress disorder 52241350 F43.10 [id number] Padmini Kline PA-C Main Office [address] [facility] [address] [place] [address] 01/06/2019 14:35:27 01/06/2019 15:08:43 Moderate recurrent major depression 21746940 F33.1 F/u with psych and counseling as scheduled. Continue prescribed meds. Posttrauma tic stress disorder 06138792 F43.10 continue meds. Hyperlipidemia 77494375 E78.00 Anemia 806980742 D64.9 Fatigue 24071512 R53.83 [id number] Padmini Kline PA-C Main Office [address] [facility] [address] [place] [address] 02/04/2019 12:56:58 02/04/2019 14:05:44 Adult health examination 960071286 Z00.00 Pure hypercholesterolemia 456632618 E78.00 start statins and low fat diet. Work on weight loss as discussed. F/u fasting lab in 6 weeks. Screening for malignant neoplasm of cervix 655979722 Z12.4 History of malignant neoplasm of breast 401625603 Z85.3 Prediabetes 670004561 R7 3.03 start weight loss via daily exercise and low carb diet. No processed foods as discussed. F/u 3-6 m. Elevated blood-pressure reading without diagnosis of hypertension 824616414 R03.0 Pt. is advised to recheck her BP on outside and return for f/u in 3 m. Follow low sodium diet and work on weight loss. Body mass index 30+ - obesity 021255645 E66.01 Z68.37 Insomnia 281331483 G47.0 0 continue trazodone. Posttrauma tic stress disorder 71417334 F43.10 continue meds.F/u with psych. Panic diso rder without agoraphobia 76262063 F41.0 F/u with psych. Atypical chest pain 1025 80862 R07.89 [id number] Padmini Kline PA-C Main Office [address] [facility] [address] [place] [address] 03/09/2019 08:46:07 03/09/2019 09:14:11 [id number] Padmini Kline PA-C Main Office [address] [address] [place] [address] 03/30/2019 12:45:07 03/30/2019 14:05:25 Chest pain 21546281 R07.2 Atypical chest pain. No sign. EKG abnormalit y. Pain possibly musculoske letal, but can not r/o cardiac component due to increased cardiovasc ular risk and family h/o heart disease. Will advise to see cardiologi st in consultati on. Continue managing lipids and BP. Benign ess ential hypertension 5375954 I10 1 month f/u with home BP records. [id number] Padmini Kline PA-C Main Office [address] [address] [place] [address] 04/13/2019 13:53:21 04/13/2019 14:32:37 Essential hypertension 65999691 I10 STable BP on medication . Repeat BMP. Continue trying to lose weight and low sodium diet. F/u 3 m. [id number] Padmini Kline PA-C Main Office [address] [address] [place] [address] 05/12/2019 08:34:11 05/12/2019 13:21:53 [id number] Padmini Kline PA-C Main Office [address] [address] [place] [address] 07/14/2019 13:39:44 07/14/2019 14:31:20 Prediabetes 141437085 R73.03 STable prediabete s with improved A1c. I discussed with pt. having to continue with low elian diet adn as soon as she can exercise, to start activity to lose weight. Consider start of metfromin in the near future. F/u 6 m. Tinea corporis 46430111 B35.4 [id number] Sneha Barth Main Office [address] [facility] [address] [place] [address] 12/15/2019 13:17:17 12/15/2019 14:32:14 Atypical chest pain 375184974 R07.89 Normal EKG Syncope and collapse 309 104703 R55 most likely related to severe anxiety and panic attack symptoms and had vasovagal episode. Arrhythmia could not be ruled out w/o cardiac eval. I will refer her to cardiology fo further testing on atypical chest pain and ? arrhythmia . Moderate r ecurrent major depression 21010174 F33.1 Continue prescribed meds. Panic diso rder without agoraphobia 45616875 F41.0 F/u with psych. [id number] Ankur Kline PA-C Main Office [address] [place] [address] 02/01/2020 14:57:15 02/02/2020 11:46:05 Headache 59959690 R51 Exposure t o SARS-CoV-2 325626176 Z20.828 dtr tested + for covid19 Exposure t o viral disease 8235235618 14455 Z03.818 cont otc meds (prn tyl, robitussin ) as dir, cont self-isola tion - reviewed guidelines and advised pt to check our website and will send to portal advised pt only to go to ER if significan t sob where may need to be admitted, o/w avoid going to hospital if at all possible Counseling 782571280 Z71 .9 Health advice, education or counseling done for COVID 19 [id number] Padmini Kline PA-C Main Office [address] [facility] [address] [place] [address] 03/11/2020 15:43:50 03/11/2020 16:57:51 Adult health examination 287691659 Z00.00 Essential hypertension 69187291 I10 Stable BP on medication . Repeat BMP. Continue trying to lose weight and low sodium diet. F/u 4 m. Pure hypercholesterolemia 159520847 E78.00 continue statins and low fat diet. Work on weight loss as discussed. repeat fasting labs. Insomnia 236500352 G47.0 0 continue trazodone. Moderate r ecurrent major depression 27516459 F33.1 Continue prescribed meds. Panic diso rder without agoraphobia 30444615 F41.0 F/u with psych. Excessive and frequent menstruation 676233268 N92.0 Prediabetes 476174234 R7 3.03 STable prediabete s with improved A1c. I discussed with pt. having to continue with low elian diet adn as soon as she can exercise, to start activity to lose weight. Consider start of metfromin in the near future. F/u 6 m. Posttrauma tic stress disorder 13481236 F43.10 continue meds.F/u with psych. Gastroesop hageal reflux disease 705653525 K21.9 continue famotidine . Screening for malignant neoplasm of colon 615302355 Z12.11 Screening for malignant neoplasm of breast 404674427 Z12.39 Body mass index 30+ - obesity 664351639 E66.01 Z68.36 [id number] Padmini Kline PA-C [facility] [address] [place] [address] 11/16/2020 13:26:51 11/17/2020 08:25:59 Essential hypertension 49299421 I10 Advised to test BP at [facility] for the next 2 weeks and return to the office for recheck with her BP meter. Multiple n odules of lung 315919867 R91.[address] due to second hand smoke exposure in the past. . Atypical chest pain 1025 92551 R07.89 Normal EKG with the same symptoms in 2019 as well as unremarkab le stress test. Pt. was reassured. Carlita be seen in office in 2 weeksfor BP check. [id number] Padmini Kline PA-C [facility] [address] [place] [address] 11/30/2020 09:03:23 12/01/2020 13:40:46 Essential hypertension 40940754 I10 Start amlodipine 5 mg daily. Continue testing BP daily. Return to office in 4 weeks. Have labs done in the mean time. Dizziness 130049894 R42 Fatigue 29961385 R53.83 [id number] Padmini Kline PA-C Main Office [address] [address] [place] [address] 02/10/2021 10:46:09 02/10/2021 11:59:58 Chest pain 22445478 R07.2 Atypical chest pain and palpitatio ns with normal EKG and previously normal stress test 2 yrs ago related to anxiety and stress. Paresthesi a of upper limb 92212883 R20.2 Rule out vitamin B12 deficiency and anemia . neck examinatio n is normal. Consider doing cervical spine xrays and work up for radiculopa thy in the neck. Prediabetes 362276414 R7 3.03 Most recent A1C 6.1% will recheck and schedule for physical in 1 m. [id number] Sneha Barth Main Office [address] [place] [address] 03/28/2021 14:09:07 03/28/2021 15:18:56 Adult health examination 825083363 Z00.00 Vaccines are up to date except for Covid and pt was counseled and is interested in receiving this vaccine, TRAUMA NURSE and Mammo are up to date.Recom mend to schedule colonoscop y. Essential hypertension 52286525 I10 managed well with medication Panic diso rder without agoraphobia 49834529 F41.0 F/u with psych. Gastroesop hageal reflux disease 671160657 K21.9 well managed with famotidine . Insomnia 323134013 G47.0 0 continue trazodone and gabapentin Severe rec urrent major depression without psychotic features 17718355 F33.2 managed with psych and therapist Prediabetes 919558505 R7 3.03 stable A1c, continue trying to lose weight via low carb low calorie diet and exercise. Pure hypercholesterolemia 010957670 E78.00 continue statins and low fat diet. Work on weight loss as discussed. Atypical chest pain 1025 27815 R07.89 costochond ritis related. Screening for malignant neoplasm of colon 750699147 Z12.11 Body mass index 30+ - obesity 063647853 Z68.37 Obesity 739232480 E66.9 [id number] Padmini Kline PA-C Main Office [address] [place] [address] 01/16/2022 13:16:04 01/16/2022 15:44:31 Foreign body sensation 074658831 R44.8 L. eye foreign body sensation. Pt. is advised to have complete evaluation by ophthalmol ogist. [id number] Padmini Kline PA-C Main Office [address] [place] [address] 03/30/2022 14:19:27 03/30/2022 15:35:41 Adult health examination 309274699 Z00.00 Vaccines are up to date except for Covid and pt was counseled and is interested in receiving this vaccine, TRAUMA NURSE and Mammo are up to date.Recom mend to schedule colonoscop y. Prediabetes 256398128 R7 3.03 stable A1c, continue trying to lose weight via low carb low calorie diet and exercise. repeat a1c Pure hypercholesterolemia 184823581 E78.00 continue statins and low fat diet. Work on weight loss as discussed. Obesity 207322269 E66.9 recommend increased exercise and follow low calorie low carb diet. Gastroesop hageal reflux disease 842417284 K21.9 well managed with famotidine . Essential hypertension 19260003 I10 managed well with medication Panic diso rder without agoraphobia 38981539 F41.0 F/u with psych. Posttrauma tic stress disorder 44692530 F43.10 continue meds.F/u with psych. Severe rec urrent major depression without psychotic features 50200910 F33.2 managed with psych and therapist Steatosis of liver 67188 1007 K76.0 weight loss recommende d. Screening for malignant neoplasm of cervix 207026772 Z12.4 Screening for malignant neoplasm of colon 033781619 Z12.11 Fatigue 95379848 R53.83 Vitamin D deficiency 347 65195 E55.9 Body mass index 30+ - obesity 777743833 Z68.35 [id number] Padmini Kline PA-C Main Office [address] [address] [place] [address] 06/27/2022 09:07:13 06/27/2022 10:00:21 Persistent mastalgia 710092665 N64.4 Persistent breast pain on the R. R/o breast pathology first. Likely rib pain. Pt. will continue otc pain meds. [id number] Padmini Kline PA-C Main Office [address] [place] [address] 02/08/2023 10:02:17 02/08/2023 10:52:52 Atypical chest pain 413694976 R07.89 recommend to repeat stress test due to high risk for CAD: obesity, HTN , prediabete s and hyperlipid emia. Repeat lipids and A1c. Schedule yearly physical for next month. Hyperlipidemia 43837058 E78.00 Hyperthyroidism 13860768 E05.90 repeat TFTs. [id number] Padmini Kline PA-C Main Office [address] [facility] [address] [place] [address] 04/05/2023 14:08:38 04/05/2023 15:19:13 Adult health examination 937847749 Z00.00 Vaccines are up to date except for Covid booster. recommend to set up with TRAUMA NURSE. Recommend to schedule colonoscop y. Body mass index 30+ - obesity 384702370 E66.01 Z68.36 Essential hypertension 40484677 I10 managed well with medication Gastroesop hageal reflux disease 941951008 K21.9 well managed with famotidine . Atypical chest pain 1025 43026 R07.89 recommend to repeat stress test due to high risk for CAD: obesity, HTN , prediabete s and hyperlipid emia. Repeat lipids and A1c. Schedule yearly physical for next month. Panic diso rder without agoraphobia 22716975 F41.0 F/u with psych. Posttrauma tic stress disorder 80956934 F43.10 continue meds.F/u with psych. Pure hypercholesterolemia 012993273 E78.00 continue statins and low fat diet. Work on weight loss as discussed. Prediabetes 221199676 R7 3.03 retest fating glucose and A1c, continue trying to lose weight. Severe rec urrent major depression without psychotic features 37128128 F33.2 managed with psych and therapist Steatosis of liver 48706 1007 K76.0 weight loss recommende d. Screening for malignant neoplasm of colon 335032265 Z12.11 Insomnia 292842012 G47.0 0 managed by psych , pt. is on large dose of trazodone. Vitamin D deficiency 347 96561 E55.9 continue supplement s otc. Costal chondritis 048674 04 M94.0 Cardiovasc ular stress test abnormal 026368864 R94.39 discussed weight loss via low calorie diet and exercise activity. Take ASA 81, statins and bp meds. Menopausal and postmenopausal disorders 259404333 N95.9 continue prempro [id number] Padmini Kline PA-C Main Office [address] [address] [place] [address] 08/06/2023 11:09:04 08/06/2023 11:49:29 Essential hypertension 73040790 I10 managed well with medication , pt. is advised to test blood pressure at home weekly and continue low sodium diet. F/u 3 m. Prediabetes 805407341 R7 3.03 retest fating glucose and A1c, continue trying to lose weight via more regular exercise activity and low carbohydra te diet. Body mass index 30+ - obesity 960172055 E66.01 Z68.36 recommend to begin exercise by walking daily at least 30 minutes or 7,000-10,0 00 steps per day. [id number] Edgardo Del Toro MD Main Office [address] [address] [place] [address] 10/05/2023 09:58:43 10/05/2023 11:00:36 Increased frequency of urination 551005219 R35.0 Urine dip neg, will send out as well to confirm.Hy dration enforced Vaginal di scharge problem 829325238 N89.9 Decline exam she will self swab.Advis ed to avoid feminine hygeine product or douching.A dvised TRAUMA NURSE follow up as well if sx don't improve or if swab neg. [id number] STEPHENIE OBRIEN Main Office [address] [address] [place] [address] 11/22/2023 10:17:28 11/22/2023 10:45:18 Bursitis of hip 00498531 M70.71 -was seen and treated by [facility] in 2020 for right hip bursitis with cortisone injections and PT-has been having right hip pain and requests a referral to be seen by [facility]-has been applying a heating pad to the area for relief and taking OTC pain medication s-denies of any fever, chills, edema, chest pain, sob, or radiating pain-PE revealed tenderness to palpation over the greater trochanter -will refer to orthopedic s, pt declined PT and prefers to wait until she gets seen by [facility] Bursitis o f right knee 0353797287 552099 M06.261 -tendernes s to palpation over the medial aspect of the knee joint-wear s a knee brace, OTC medication s, and applies heating pad which provides relief-ref er to orthopedic s [id number] Padmini Kline PA-C Main Office [address] [address] 12/10/2023 13:02:10 12/10/2023 13:46:14 Essential hypertension 03781369 I10 managed well with medication , pt. is advised to test blood pressure at home weekly and continue low sodium diet. F/u 3 m. Prediabetes 920273964 R7 3.03 A1c today is up to 6.2% from 6%. Elevation in pts A1C likely due to lifestyle and not maintainin g healthy diet and exercise. Pt understand s the importance of trying to lose weight via more regular exercise activity and low carbohydra te diet. Check lipid panel and repeat A1C [id number] Padmini Kline PA-C Main Office [address] [address] 06/10/2024 13:06:36 06/10/2024 14:08:15 Adult health examination 135414511 Z00.00 Vaccines are up to date except for Covid booster. Recommend to set up with TRAUMA NURSE. referral provided for colonoscop y screening, mammograph y, sleep medicine. Prediabetes 332812091 R7 3.03 A1c today is up to 6.2% from 6%. Elevation in pts A1C likely due to lifestyle and not maintainin g healthy diet and exercise. Pt understand s the importance of trying to lose weight via more regular exercise activity and low carbohydra te diet. Check lipid panel and repeat A1C. Pure hypercholesterolemia 468849892 E78.00 Continue statins and low fat diet. Work on weight loss as discussed. Essential hypertension 33870894 I10 Managed well with medication , pt is advised to test blood pressure at home weekly and continue low sodium diet. F/u 3 m. Atypical chest pain 1025 64916 R07.89 recommend to repeat stress test due to high risk for CAD de to obesity, HTN , prediabete s and hyperlipid emia. Last exercise treadmill stress test in 2022 had to be stopped earlier due to dyspnea and high blood pressure: Repeat lipids and A1c. Body mass index 30+ - obesity 989913828 E66.01 Z68.36 High cardiovasc ular risk due to prediabete s, hyperlipid emia, HTN and obesity. Atypical chest pain with chronotrop ic incompeten ce on stress test due to dyspnea test was stopped, pt. also had hypertensi ve response. Start Wegovy. 0.25 mg SQ once a week x 4 weeks, then 0.5 mg weekly thereafter . Patient counseled on side effects. F/u in 6-8 weeks. Vitamin D deficiency 347 75525 E55.9 continue supplement s otc. 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 Patient has HTN and obesity. Refer to sleep medicine. Screening for malignant neoplasm of colon 057406160 Z12.11 Screening mammography 24 676478 Z12.31 Screening for malignant neoplasm of cervix 186748910 Z12.4 [id number] Padmini Kline PA-C Main Office [address] [facility] [address] [facility] [address] 06/16/2024 14:27:36 06/16/2024 14:58:03 Costal chondritis 63550275 M94.0 Musculoske letal chest pain. Begin Medrol dose pack as directed with tylenol ES every 4-6 hrs. Heat applied to chest every 2-3 hrs for 10-15 minutes today and 2-3 times tomorrow. PT. is awaiting stress test to be scheduled. IN the mean time, if any changes in pain or exertional chest pressure, pt. is advised to go to the ER. [id number] Padmini Kline PA-C Main Office [address] [facility] [address] [place] [address] 08/11/2024 13:26:45 08/11/2024 14:15:31 Type 2 diabetes mellitus without complication 558944658 E11.9 Total time spent teaching and coordinati ng diabetic care 45 minutes. Basic physiology of Type II Diabetes Mellitus was reviewed. Pt. is advised to begin testing glucose once per day fasting in the am with freestyle Lite meter. Goal for fasting glucose is 80-130 and 1-2 hrs after the meal under 180. Pt. was instructed on low calorie diet. Pt. was advised to start exercise activity by walking 30 min at least 3 times weekly and increase weekly or by weekly to 4-6 day per week. If unable to walk , pt. should use other exercise modalities /equipment that is stationary at home or in the gym for that amount of time weekly or water exercises. Begin metformin er 500 mg at supper daily. Possible side effects reviewed. AFter 1 week on metfromin also begin Ozempic at 0.25 mg weekly for 4 weeks. WE discussed having to increase fiber in diet and fluids. F/u 6-8 weeks. Mixed hyperlipidemia 267 751298 E78.2 recom to reduce carbohydra vineet. Retest lipids in 1 year. [id number] Padmini Kline PA-C Main Office [address] [facility] [address] [facility] [address] 11/11/2024 13:55:07 11/11/2024 14:57:32 Type 2 diabetes mellitus without complication 007866332 E11.9 Stable type II diabetes w/o complicati ons. Recommend to continue Ozempic 0.5 mg weekly and discontinu e metfromin at this time. Continue low calorie diet and exercise. Obtain urine for microalbum in. F/u 4 m. Body mass index 30+ - obesity 411739192 E66.01 Z68.32 Pt. lost 17 lbs since the last visit 3 m ago on Ozempic.Re com to continue current dose. Health Concerns Section Related Observation LastModified by Organization Detai ls LastModified Time None Recorded Concern Status LastModified by Organization Details LastModified Time None Recorded Advance Directives Directive N: Payers Encounter Date Sequence Insurance Name Policy Number Policy Holcomb Covered Member ID Holcomb Member ID Guarantor Name 12/10/2023 1 [facility] (MEDICARE REPLACEMENT/A DVANTAGE - HMO) [id number] Erika Rojas [id number] Erika Rojas 12/10/2023 2 [place] [facility] Erika Rojas [id number] Erika Rojas 06/10/2024 1 [facility] (MEDICARE REPLACEMENT/A DVANTAGE - HMO) [id number] Erika Rojas [id number] Erika Rojas 06/10/2024 2 [place] [facility] Erika Rojas [id number] Erika Rojas 06/16/2024 1 [facility] (MEDICARE REPLACEMENT/A DVANTAGE - HMO) [id number] Erika Leeo [id number] Erika Leeo 06/16/2024 2 [place] [facility] Erika Leeo [id number] Erika Rojas 08/11/2024 1 [facility] (MEDICARE REPLACEMENT/A DVANTAGE - HMO) [id number] Erika Leeo [id number] Erika Leeo 08/11/2024 2 [place] [facility] Erika Leeo [id number] Erika Rojas 11/11/2024 1 [facility] (MEDICARE REPLACEMENT/A DVANTAGE - HMO) [id number] Erika Leeo [id number] Erika Leeo 11/11/2024 2 [place] [facility] Erika Rojas [id number] Erika Rojas Notes Date Note Type Note Provider Name and Address Organization Details Recorded Time 4 text/html Hypertension F/UReported bypatient.Associated Symptoms:no lightheadedness; no chest pain; no shortness of breath; no palpitations; no edema; no calf pain with exertion;dizziness Lifestyle:limiting/avoidi ng salt;not exercising regularly Medications:taking medications as directed; no side effects from medication; checks blood pressure at home, range:Notes:Pt is a 53 year old female presenting for her HTN follow up. She is maintained on amlodipine 5mg. Pt takes her blood pressure at home once a day and ranges from 115-120 over 70-80. Pt is not exercising regularly but plans to start, She is maintaining a low sodium diet. Pt has been doing stretches at home in preparation for nicer weather. 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 Pt has occasional dizziness that is ongoing for her. Pts A1c is up to 6.2% from 6% at her last visit. Pt understands that she needs to have Padmini Kline PA-C [address] [address], [place], [address] [facility] [place] 14:20:03 4 text/html Generic HPI TemplateReported bypatient.Notes:53 yo here for annual physical.Mammogram normal in July 2022, last Pap Smear in 2020.No prior colonoscopy.Vaccines are up to date.BMI is 36. Patient states she would like to start exercising. While in [place] last month, she walked more but had chest pain/dyspnea.Prediabetes since 2018. Last A1c was 6.2% in December. Fasting glucose was in the normal range.Diet- Does not eat breakfast. Has coffee and crackers in the afternoon. Burger, sandwich, etc for dinner.Atypical chest pain, h/o costochondritis. Stress test in 2022 was stopped early due to dyspnea and hypertensive response.HTN is stable on meds as well as lipids .Severe depression with prior hospital admission and partial hospitalizations. SHANNON score is 18, PHQ 0. Goes to therapy once a week. Currently on sertraline , bupropion, gabapentin and clonazepam .Secondary Insomnia , on trazodone 300 mg at HS. Padmini Kline PA-C [address] [facility] [address], [place], [address] [facility] [place]10[place] 16:19:11 4 text/html 53 year old female with h/o prediabetes, obesity, anxiety/depression, hyperlipidemia and atypical chest pain, c/o mid sternal pain started yesterday w/o exertion and was knife like and sharp . Pain continues intermittently. Nothing makes it better. Denies dyspnea, chest pressure, exertional symptoms, cough , unusual physical activity, trauma to chest. NO cough , fever, chills. Pt. was just seen for PE and NM stress test ordered to f/u on exercise stress test that was done last year and stopped early due to dyspnea and elevated blood pressur.e There was no electrocardiographic test abnormality. Padmini Kline PA-C [address] [facility] [address], [place], [address], [facility] [place]16/[place]24 16:22:32 4 text/html Diabetes F/UReported bypatient.Associated Symptoms:no weight gain; no weight loss; no dizziness; no sweats; no headaches; no confusion; no increased thirst; no increased appetite; no increased urination; no blurred vision; no numbness of feet; no calluses on feetNotes:53 year old female presents for new onset type II Diabetes Mellitus. 5 year h/o prediabetes and significant family h/o obesity and DM.Hemoglobin A1c up from 6.2 to 6.5% and fasting glucose was 120. Pt. has family Current BMI is 35.6. H/o hypertension and mixed hyperlipidemia. Last TRG count was 206 on atorvastatin 40 mg. Padmini Kline PA-C [address] [facility] [address], [place], [address], [facility] 08/11/2024 14:58:20 5 text/html Diabetes F/UReported bypatient.Context:normal range of home blood sugars (in the low 100s); seeing eye doctor regularly; checking feet regularly; not missing doses of medications; no side effects from medications Associated Symptoms:no weight gain; no dizziness; no sweats; no headaches; no confusion; no increased thirst; no increased appetite; no increased urination; no blurred vision; no numbness of feet; no calluses on feet;weight loss (17 lbs)Notes:A1c done yesterday by the insurance provider was at 5.7%.Meds: Ozempic 0.5 mg weekly, well tolerated. Pt lost 17 lbs since it's start in August.Eye exam negative for retinopathy. NO foot pain or numbness. Pt. is on gabapentin due to back problems. Blood pressure is stable. Padmini Kline PA-C [address] [facility] [address], [place], [address], [facility] 11/11/2024 15:03:05 OBGyn Episode No OBEpisode recorded.
--- OUTSIDE RECORDS SUMMARY | 2024-11-20 14:11 | XMS_ITS | Continuity of Care Document ---
Author Organization [facility], Main Office Address [address] [place] [address] Care Team Providers Care Business Process Lead Name Role Phone [facility] Edm Operator LEEANNE KLINE Primary Care Provider BETHANIE TRIVEDI Paunch Trimmer JUAN WYNNE Orthopedic Surgeon Assessment No assessment recorded. Plan of Treatment Reminders Order Date Submit Date Provider Last Modified By Organization Details Last Modified Time Details Appointments Follow Up DM 30 2024 11:00A M Leeanne Kline PA-C Not available Not available Not available Lab microalb umin/cre atinine, mass ratio, urine 2024 025 [place] [facility], [address], [place], [address], 11/12/2024 18:05:55 Referral None recorded . Procedures None recorded . Surgeries None recorded . Imaging None recorded . Medication Orders None recorded . Patient TargetsNo targets recorded. Patient Instructions Encounter Date Encounter Id Patient Instructions Last Modified By Organization Details Last Modified Time 11/11/2024 [id number] type 2 diabetes: care instructions Not available 11/11/2024 14:46:56 Reason for Referral None Reported. Problems Name Problem SNOMED Code Status Onset Date Resolution Date Notes Provider Name and Address Organization Details Recorded Time Abdomina l pain 84161545 Completed 201204/27/2014 RECORDED 11/06/19 13 1:40AM BY SHAHID BOWIE MA, ANNOTATI ON/ADDEN DAVE wheeler [facility] 6 11:24:43 Epigastr ic pain 73672872 Completed 201104/27/2014 STORY: [facility]; RECORDED 06/10/20 12 1:26PM BY SHAHID BOWIE MA, FAVIAN ON/ELIDIA ACOSTA Amber TessaSamantha merna null, [facility] 6 11:24:43 Acute pharyngi tis 221256080 Completed 200804/27/2014 IMPRESSI ON: SEND FOR STREP, ALL SEEMS VIRAL TX WITH MOTRIN, FLUIDS AND REST; RECORDED 08/03/20 09 12:44PM BY [facility]IAN [facility]ILLA [facility] Amber TessaSamantha bauman null, [facility] 6 11:24:43 Acute sinusiti s 01686727 Completed 201104/27/2014 RECORDED 06/10/20 12 1:26PM BY SHAHID BOWIE MA, [facility]AVIAN [facility] Amber TessaMarlenrobert merna null, [facility] 6 11:24:43 Acute upper respirat ory infectio n [id number] Completed 201104/27/2014 RECORDED 06/10/20 12 1:26PM BY SHAHID BOWIE MA, [facility]AVIAN ON[facility] Amber TessaSamantha bauman null, [facility] 6 11:24:43 Anemia 321880440 Completed 02/04/2019 Leeanne Kline PA-C [address], [place], [address], [facility] 9 13:33:00 Patient status finding [id number] Completed 201204/27/2014 RECORDED 02/20/20 13 10:03AM BY NITISH BAEZ MA, [facility]AVIAN ON[facility] Amber ZarateSamantha merna null, [facility] 6 11:24:43 Backache 116151545 Completed 201104/27/2014 IMPRESSI ON: CHRONIC/ RECURREN T. 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 WILL REST, USE INTERMIT TENT HEAT/ICE , NSAID FOR PAIN. WILL LIKELY NEED PT, POSSIBLE REFERRAL TO PSS SHOULD SXS FAIL TO IMPROVE. DECLINES ORDER FOR NOW, WILL CONTACT ME IN 1 WEEK WITH UPDATE.; RECORDED 06/10/20 12 1:26PM BY SHAHID BOWIE MA, FAVIAN ON/[facility] Amber bauman null, [facility] 6 11:24:43 Screenin g for malignan t neoplasm of cervix Completed 201304/27/2014 RECORDED 01/12/20 14 11:25AM BY NITISH BAEZ MA, FAVIAN ON/[facility] Amber bauman null, [facility] 6 11:24:43 Breathin g painful 16307682 Completed 201104/27/2014 RECORDED 06/10/20 12 1:26PM BY SHAHID BOWIE MA, ANNOTATI ON/[facility] Amber bauman null, [facility] 6 11:24:43 Chest pain 70175233 Completed 201307/20/2014 IMPRESSI ON: ATYPICAL CHEST PAIN, REASSURI NG ECG AND NORMAL EXAM, SUSPECT ANXIETY RELATED BUT SHE DOES REPORT A SYNCOPAL EPISODE, WILL CHECK SOME LABS, SHE DOES HAVE LORAZEPA M TO TAKE IF NEEDED; RECORDED 03/08/20 14 10:56AM BY NITISH BAEZ MA, OFFICE VISIT Amber wheeler, [facility] 6 11:24:43 Dysphagi a [id number] Completed 200804/27/2014 RECORDED 06/18/20 09 11:33AM BY FAVIAN BOSS ON/[facility] Amber wheeler, [facility] 6 11:24:43 Dysuria 68916772 Completed 200704/27/2014 RECORDED 08/10/20 08 2:55PM BY SORAIDA ARENAS MA, FAVIAN ON/ADDEN DUM Amber ZarateSamantha bauman null, [facility] 6 11:24:43 Gastroes ophageal reflux disease 087863411 Active Amber ZarateSamantha merna null, [facility] 6 11:24:43 Malaise and fatigue 370208795 Completed 11/07/2017 Tran Kaplan MA null, [facility] 8 08:34:08 Influenz a vaccine needed 99386268854 06 Completed 201304/27/2014 RECORDED 01/12/20 14 11:25AM BY NITISH BAEZ MA, FAVIAN ON/ADDEN DUM Amber ZarateSamantha merna null, [facility] 6 11:24:43 Noninfec tious gastroen teritis 76621813 Completed 201104/27/2014 RECORDED 06/10/20 12 1:25PM BY SHAHID BOWIE MA, FAVIAN ON/ADDEN DUM Amber ZarateSamantha bauman null, [facility] 6 11:24:43 Adult health examinat ion Completed 201204/27/2014 RECORDED 02/20/20 13 10:03AM BY NITISH BAEZ MA, FAVIAN ON/ADDEN DUM Amber ZarateSamantha merna null, [facility] 6 11:24:43 General examinat ion of patient Completed 200704/27/2014 RECORDED 08/10/20 08 2:54PM BY SORAIDA ARENAS MA, FAVIAN ON/ADDEN DUM Amber ZarateMarlenrobert merna null, [facility] 6 11:24:43 Influenz a with respirat ory manifest ation other than pneumoni a Completed 201104/27/2014 STORY: CLINICAL DX. FEVER/MY LAGIA/CUMMINGS ; RECORDED 06/10/20 12 1:26PM BY SHAHID BOWIE MA, FAVIAN ON/ADDEN DUM Amber bauman null, [facility] 6 11:24:43 Insomnia 194366233 Active Amber bauman null, [facility] 6 11:24:43 Transien t insomnia 721626943 Completed 02/04/2019 Leeanne Kline PA-C [address], [place] [facility] [place] [place], [address], [facility] 9 13:33:45 Hyperlip idemia screenin g Completed 201307/20/2014 RECORDED 03/08/20 14 10:56AM BY NITISH BAEZ MA, OFFICE VISIT Amber bauman null, [facility] 6 11:24:43 Low back pain 035612411 Completed 201204/27/2014 RECORDED 05/26/20 13 9:50AM BY NITISH BAEZ MA, ANNOTATI ON/ADDEN DAVE Kaplan MA null, [facility] 6 08:58:09 Lumbar sprain 411490879 Completed 200804/27/2014 RECORDED 06/18/20 09 11:34AM BY FAVIAN BOSS ON/[facility] DAVE MoultonLiliamstephon bauman null, [facility] 6 11:24:43 Single major depressi ve episode Completed 10/24/2018 Leeanne Kline PA-C [address], [place], [address], [facility] 9 14:24:18 Screenin g for malignan t neoplasm of breast Completed 201304/27/2014 RECORDED 01/12/20 14 11:25AM BY NITISH BAEZ MA, ANNOTATI ON/ADDGRISEL bauman null, [facility] 6 11:24:43 Patient status finding [id number] Completed 201307/20/2014 RECORDED 03/08/20 14 10:56AM BY NITISH BAEZ MA, OFFICE VISIT Amber wheeler, [facility] 6 11:24:43 Cyst of ovary 59907897 Completed 09/14/2016 Tran wheeler, [facility] 6 08:58:43 Shoulder joint pain 149830815 Completed 201104/27/2014 IMPRESSI ON: R SHOULDER , SUSPECT AN OVERUSE SECONDAR Y TO WORK 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 CALL FOR WORSENIN G OR IF NO BETTER IN 1 WEEK.; RECORDED 06/10/20 12 1:26PM BY SHAHID BOWIE MA, FAVIAN ON/ADDEN DAVE wheeler, [facility] 6 11:24:43 Panic disorder without agorapho guilherme 46927320 Active Amber wheeler [facility] 6 11:24:43 Adult health examinat ion Completed 201307/20/2014 RECORDED 03/08/20 14 10:56AM BY NITISH BAEZ MA, OFFICE VISIT Amber wheeler, [facility] 6 11:24:43 Sciatic nerve lesion 484572462 Completed 201104/27/2014 RECORDED 06/10/20 12 1:25PM BY SHAHID BOWIE MA, ANNOTATI ON/ADDEN DUM Amber wheeler, [facility] 6 11:24:43 Chronic sinusiti s 39176388 Completed 201104/27/2014 RECORDED 06/10/20 12 1:26PM BY SHAHID BWOIE MA, ANNOTATI ON/ADDEN DAVE wheeler, [facility] 6 11:24:43 Toxic effect of venom 72175875 Completed 201104/27/2014 IMPRESSI ON: L ARM WITH [...] 12 1:25PM BY SHAHID BOWIE MA, ANNOTATI ON/ADDEN DUM Amber wheeler [facility] 6 11:24:43 Syncope and collapse 162811274 Completed 201104/27/2014 RECORDED 06/10/20 12 1:26PM BY SHAHID BOWIE MA, ANNOTATI ON/ADDEN DUM KASIA Worrell, [facility] 0 15:59:02 Viral disease 00953589 Completed 201104/27/2014 RECORDED 06/10/20 12 1:26PM BY SHAHID BOWIE MA, ANNOTATI ON/ADD Amber wheeler [facility] 6 11:24:43 Acute pharyngi tis 423909391 Completed 07/20/2014 Amber wheeler [facility] 6 11:24:43 Acute upper respirat ory infectio n 23457327 Completed 07/20/2014 Amber wheeler [facility] 6 11:24:43 Contact dermatit is caused by urushiol from Eastern poison dahlia 976661772 Completed 07/20/2014 Amber wheeler [facility] 6 11:24:43 Abdomina l pain 85876485 Completed 201205/17/2014 RECORDED 11/06/19 13 1:40AM BY SHAHID BOWIE MA, ANNOTATI ON/ADD DUM Amber wheeler [facility] 6 11:24:43 Epigastr ic pain 09226969 Completed 201105/17/2014 STORY: PROB [facility]ARTBUR N; RECORDED 06/10/20 12 1:26PM BY SHAHID BOWIE MA, FAVIAN ON/ADDEN DUM Amber Tessa'Alessan merna null, [facility] 6 11:24:43 Acute pharyngi tis 689519879 Completed 200805/17/2014 IMPRESSI ON: SEND FOR STREP, ALL SEEMS VIRAL TX WITH MOTRIN, FLUIDS AND REST; RECORDED 08/03/20 09 12:44PM BY FAVIAN MONTILLA ON/ADDEN DUM Amber Tessa'Alessan merna null, [facility] 6 11:24:43 Acute sinusiti s 27789740 Completed 201105/17/2014 RECORDED 06/10/20 12 1:26PM BY SHAHID BOWIE MA, FAVIAN ON/ADDEN DUM Amber Tessa'Alessan merna null, [facility] 6 11:24:43 Acute upper respirat ory infectio n 91290098 Completed 201105/17/2014 RECORDED 06/10/20 12 1:26PM BY SHAHID BOWIE MA, FAVIAN ON/ADDEN DUM Amber Tessa'Alessan merna null, [facility] 6 11:24:43 Patient status finding [id number] Completed 201205/17/2014 RECORDED 02/20/20 13 10:03AM BY NITISH BAEZ MA, ANNOTATI ON/ADDEN DUM Amber Tessa'Aleannaan merna null, [facility] 6 11:24:43 Backache 781216155 Completed 201105/17/2014 IMPRESSI ON: CHRONIC/ RECURREN T. 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 WILL REST, USE INTERMIT TENT HEAT/ICE , NSAID FOR PAIN. WILL LIKELY NEED PT, POSSIBLE REFERRAL TO PSS SHOULD SXS FAIL TO IMPROVE. DECLINES ORDER FOR NOW, WILL CONTACT ME IN 1 WEEK WITH UPDATE.; RECORDED 06/10/20 12 1:26PM BY SHAHID BOWIE MA, FAVIAN ON/ADDEN DUM Amber Tessa'Alessan merna null, [facility] 6 11:24:43 Screenin g for malignan t neoplasm of cervix Completed 201305/17/2014 RECORDED 01/12/20 14 11:25AM BY NITISH BAEZ MA, FAVIAN ON/ADDEN DUM Amber D'Alessan merna null, [facility] 6 11:24:43 Breathin g painful 57474643 Completed 201105/17/2014 RECORDED 06/10/20 12 1:26PM BY SHAHID BOWIE MA, JOLLYATI ON/ADDEN DUM Amber D'Alessan merna null, [facility] 6 11:24:43 Dysphagi a 01060661 Completed 200805/17/2014 RECORDED 06/18/20 09 11:33AM BY KASIA ARSHAD, JOLLYATI ON/ADDEN DUM Amber D'Alessan merna null, [facility] 6 11:24:43 Dysuria 65803687 Completed 200705/17/2014 RECORDED 08/10/20 08 2:55PM BY SORAIDA ARENAS MA, JOLLYATI ON/ADDEN DUM Amber D'Alessan merna null, [facility] 6 11:24:43 Influenz a vaccine needed 14934365847 06 Completed 201305/17/2014 RECORDED 01/12/20 14 11:25AM BY NITISH BAEZ MA, FAVIAN ON/ADDEN DUM Amber D'Alessan merna null, [facility] 6 11:24:43 Noninfec tious gastroen teritis 15412750 Completed 201105/17/2014 RECORDED 06/10/20 12 1:25PM BY SHAHID BOWIE MA, FAVIAN ON/ADDEN DUM Amber D'Alessan merna null, [facility] 6 11:24:43 Adult health examinat ion Completed 201205/17/2014 RECORDED 02/20/20 13 10:03AM BY NITISH BAEZ MA, JOLLYATI ON/ADDEN DUM Amber MoultonAleannaan merna null, [facility] 6 11:24:43 General examinat ion of patient Completed 200705/17/2014 RECORDED 08/10/20 08 2:54PM BY SORAIDA ARENAS MA, ANNOTATI ON/ADDEN DUM Amber MoultonAleannaan merna null, [facility] 6 11:24:43 Influenz a with respirat ory manifest ation other than pneumoni a Completed 201105/17/2014 STORY: CLINICAL DX. FEVER/MY LAGIA/CUMMINGS ; RECORDED 06/10/20 12 1:26PM BY SHAHID BOWIE MA, ANNOTATI ON/ADDEN DUM Amber MoultonAleannaan merna null, [facility] 6 11:24:43 Low back pain 982089183 Completed 201205/17/2014 RECORDED 05/26/20 13 9:50AM BY NITISH BAEZ MA, ANNOTATI ON/ADDEN DUM Tran Kaplan MA null, [facility] 6 08:58:09 Lumbar sprain 595039590 Completed 200805/17/2014 RECORDED 06/18/20 09 11:34AM BY FAVIAN BOSS ON/ADDEN DUM Amber MoultonAlestephon merna null, [facility] 6 11:24:43 Screenin g for malignan t neoplasm of breast Completed 201305/17/2014 RECORDED 01/12/20 14 11:25AM BY NITISH BAEZ MA, ANNOTATI ON/ADDEN DUM Amber MoultonAleannaan merna null, [facility] 6 11:24:43 Shoulder joint pain 418052634 Completed 201105/17/2014 IMPRESSI ON: R SHOULDER , SUSPECT AN OVERUSE SECONDAR Y TO WORK 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 CALL FOR WORSENIN G OR IF NO BETTER IN 1 WEEK.; RECORDED 06/10/20 12 1:26PM BY SHAHID BOWIE MA, ANNOTATI ON/ADDEN DAVE wheeler, [facility] 6 11:24:43 Sciatic nerve lesion 397513078 Completed 201105/17/2014 RECORDED 06/10/20 12 1:25PM BY SHAHID BOWIE MA, ANNOTATI ON/ADDGRISEL wheeler, [facility] 6 11:24:43 Chronic sinusiti s 17026868 Completed 201105/17/2014 RECORDED 06/10/20 12 1:26PM BY SHAHID BOWIE MA, ANNOTATI ON/ADDGRISEL bauman null, [facility] 6 11:24:43 Toxic effect of venom 00405255 Completed 201105/17/2014 IMPRESSI ON: L ARM WITH [...] 12 1:25PM BY SHAHID BOWIE MA, ANNOTATI ON/ADDEN DAVE bauman null, [facility] 6 11:24:43 Syncope and collapse 783064706 Completed 201105/17/2014 RECORDED 06/10/20 12 1:26PM BY SHAHID BOWIE MA, ANNOTATI ON/ADDEN KASIA Valencia, [facility] 0 15:59:02 Viral disease 03646589 Completed 201105/17/2014 RECORDED 06/10/20 12 1:26PM BY SHAHID BOWIE MA, ANNOTATI ON/ADDEN DAVE wheeler, [facility] 6 11:24:43 Eruption [id number] Completed 07/20/2014 Amber wheeler, [facility] 6 11:24:43 Costal chondrit is 83713482 Active Amber wheeler, [facility] 6 11:24:43 Allergic rhinitis 07246143 Completed 09/14/2016 Tran wheeler, [facility] 6 08:58:14 Atypical chest pain 456405042 Completed 09/14/2016 Leeanne CASIANO-C [address], [place], [address], [facility] 9 14:02:56 Panic attack 560804355 Completed 09/14/2016 Tran wheeler [facility] 6 08:58:00 Low back pain 287265610 Completed 09/14/2016 Tran wheeler, [facility] 6 08:58:09 Major depressi ve disorder 950673426 Completed 10/24/2018 Leeanne CASIANO-C [address], [place], [address], [facility] 9 17:28:29 Anxiety 21092659 Completed 09/14/2016 Tran wheeler [facility] 6 08:58:29 Severe anxiety (panic) 00640514 Completed 10/24/2018 Leeanne CASIANO-C [address], [place], [address], [facility] 9 14:24:29 Headache 90635806 Completed 09/14/2016 Tran wheeler [facility] 6 08:58:03 Hyperlip idemia 77918207 Completed 01/06/2019 Leeanne CASIANO-C [address], [place], [address], [facility] 9 15:03:44 Moderate recurren t major depressi on 12537530 Completed 201803/28/2021 Leeanne Kline [employer]-C [address], [place], [address], [facility] 1 14:45:34 Posttrau matic stress disorder 58045534 Active 2018 Leeanne Kline [employer] [address], [place], [address], [facility] 9 17:26:51 Impaired fasting glycemia 707468314 Completed 201802/04/2019 Leeanne [facility]- [address], [place], [address], [facility] 9 13:33:05 Elevated blood-pr essure reading without diagnosi s of hyperten arnold 330207402 Completed 201804/13/2019 Leeanne TerryTianjin Bonna-Agela TechnologiesC [address], [place], [address], [facility] 9 14:10:26 Atypical chest pain 538009341 Active 2018 Leeanne Kline [employer] [address], [place], [address], [facility] 9 14:02:56 Cardiova scular stress test abnormal 434407598 Active 2018 Leeanne KlineTianjin Bonna-Agela TechnologiesC [address], [place], [address], [facility] 9 16:25:07 Essentia l hyperten arnold 81571627 Active 2018 Leeanne Kline PA-C [address], [place], [address], [facility] 9 14:10:32 Multiple nodules of lung 538825080 Active [address] [facility] 12/14/19 Leeanne EVANSC [address], [place], [address], [facility] 0 15:04:25 Syncope and collapse 799666273 Active 2019 Soraida singer [place] null, [facility] 0 15:59:02 Obesity 980151994 Active 2019 Sneha Cantuvedo null, [facility] 0 11:25:12 Suspecte d COVID-19 650339302 Completed 03/01/2021 Removal Reason: Problem added by user [email or web address] from the COVID-19 watch flag Camila Chase null, [facility] 1 15:29:52 Severe recurren t major depressi on without psychoti c features 14807017 Active 2020 Leeanne EVANSC [address], [place], [address], [facility] 1 14:45:49 Body mass index 30+ - obesity 484948503 Active 2020 Leeanne EVANSC [address], [place], [address], [facility] 1 15:19:50 Steatosi s of liver 844119685 Active 2021 Stacie Rose null, [facility] 2 14:53:18 Vitamin D deficien cy 95938625 Active 2022 Leeanne CASIANO-C [address], [place], [address], [facility] 3 14:58:21 Snoring 82741029 Active 2023 Samantha Eduardo null, [facility] 4 14:13:58 Type 2 diabetes mellitus without complica tion 859789807 Active 2023 new onset Leeanne EVANSC [address], [place], [address], [facility] 4 15:28:34 Mixed hyperlip idemia 645622720 Active 2023 Leeanne Kline JOVON [address], [place], [address], [facility] 4 14:55:20 Problem Notes None recorded. Procedures Surgical History Date Name Laterality Status Provider Name and Address Organization Details Recorded Time 08/08/20 24 Most Recent Mammogram completed Kristen De Anda [facility] 08/10/2024 09:05:40 07/26/20 21 Knee arthroscopy/surg samreen completed Evelyn Cartagena [facility] 04/04/2022 10:01:42 07/25/20 21 Mammogram one breast completed Winter Barth [facility] 09/21/2021 14:47:35 10/07/19 21 Date of Last Pap Smear completed Svetlana Mendoza MA [facility] 03/28/2021 14:21:00 06/23/20 20 Ultrasound breast limited completed Darlin Caruso [facility] 06/24/2020 08:35:06 06/20/20 20 Mammogram screening completed Darlin Caruso [facility] 06/21/2020 08:57:57 10/07/19 20 Endometrial Biopsy completed Soraida schmitt MA [facility] 03/30/2022 14:26:36 08/12/19 96 Tubal Ligation completed Soraida schmitt MA [facility] 03/30/2022 14:26:36 Hysterectomy completed Soraida schmitt MA [facility] 05/11/2014 16:19:39 Endometrial Ablation completed Soraida schmitt MA [facility] 05/11/2014 16:19:39 Imaging Results None recorded. Procedure Notes None recorded. Medical Equipment None [...] active RECORDED 03/08/20 14 11:49AM BY AMBER BAUMAN MD, OFFICE VISIT; Not Available Not Available Not Available cyclobenz aprine 10 mg tablet AT BEDTIME 07/15 completed RECORDED 10/04/20 11 10:41AM BY AMBER BAUMAN MD, MEDICATI ON AUTO-BRI CTIVATIO N; Not [...] 12/03 completed RECORDED 01/24/20 11 1:17PM BY LULÚ UNDERWOOD PA-C, MEDICATI ON AUTO-BRI CTIVATIO N;2PO [...] active RECORDED 02/20/20 13 10:50AM BY AMBER BAUMAN MD, OFFICE VISIT; Not Available Not Available [...] 10/14 completed RECORDED 03/06/20 12 2:53PM BY LULÚ UNDERWOOD PA-C, MEDICATI ON AUTO-BRI CTIVATIO N; [...] completed RECORDED 04/03/20 12 2:52PM BY NICKO BAEZ, JOVON, MEDICATI ON AUTO-BRI CTIVATIO N; Not Available [...] e 50 mcg/actua tion nasal spray,joanne pension [place] 2 sprays every day by intranas al [...] completed RECORDED 06/10/20 09 11:57AM BY AMBER BAUMAN MD, MEDICATI ON AUTO-BRI CTIVATIO N; Not [...] 12/05 completed RECORDED 01/24/20 11 1:17PM BY LULÚ UNDERWOOD PA-C, MEDICATI ON AUTO-BRI CTIVATIO N; Not Available Not Available Not Available cyclobenz aprine 7.5 mg tablet Take 1-2 tablets by mouth up to 3 times daily for pain active Not Available Not Available No t Available Gavilax 17 gram/dose oral powder 238 G ORALLY ONCE DIRECTED BY GASTROEN TEROLOGY DEPARTME NT AT [facility] active Not Available Not Available No t [...] Not Available No t Available Fluarix Quad 1364-8661 (PF) 60 mcg (15 mcg x 4)/0.5 [...] Updated DateTime 5 147.95 cm 32.1 kg/m2 38845.8 2 g 71 /min 97 % 97 % 97.7 [degF] 108 mm[Hg] 68 mm[Hg] Soraida singer MA [facility] 5 14:10:38 Social History Question Answer Notes LastModified by Organizat ion Details LastModified Time Tobacco Smoking Status Never Smoker KASIA Zazueta [facility] [place] [facility] 05/11/2014 16:18:11 Do You Have An [...] What Is Your Occupation? Former [employer] Information not available 02/04/2019 Live Alone Or [...] available 03/30/2022 14:26:34 Mother Asthma Mom age 46/[place] [email or web address] Not available 03/30/2022 14:26:34 Mother [...] N mrsa exposure N Lung Disease N Hypothyroidism N Depression Y COPD N Defects or Inherited Disease N Developmental or Behavioral Disorders N Breast Problem N Anesthesia Complications N Headaches/Migraines N Varicose Veins N Anxiety Disorder Y Muscle, Joint, or Bone Problems N Obesity N Vision or Eye Problems N Arthritis N Head Injury/Concussion N Infertility N Polyps N Mental Disorder N Congenital Anomalies N Acid Reflux (GERD) Y Cancer N Stroke N ADHD N Endometriosis N High Cholesterol N Liver Disease N Headaches N Fibromyalgia N Kidney Disease N Heart Problems N [...] Immunizations Vaccine Type Date Status Note Provider Arjun cardenas and Address Organization Details Recorded Time Influenza, split virus, quadrivalent, preservative 6 completed Not Available [facility] 11/22/2023 10:20:44 COVID-19, mRNA, LNP-S, PF, 30 mcg/0.3 mL dose 1 completed KASIA Cardona [facility] 01/16/2022 13:32:25 COVID-19, mRNA, LNP-S, PF, 30 mcg/0.3 mL dose 1 completed KASIA Cardona [facility] 01/16/2022 13:32:25 Influenza, split virus, quadrivalent, PF 6 completed KASIA Onofre [facility] 06/27/2022 09:12:07 zoster recombinant 2 completed KASIA Onofre [facility] 06/27/2022 09:12:07 Influenza, split virus, quadrivalent, PF 7 completed KASIA Onofre [facility] 06/27/2022 09:12:15 Tdap 6 completed KASIA Onofre [facility] 06/27/2022 09:12:15 zoster recombinant 3 completed KASIA Lugo [facility] 02/08/2023 10:08:18 Tdap 7 completed Not Available [facility] 04/20/2014 13:22:56 Influenza, split virus, trivalent, preservative 2 completed Not Available [facility] 04/20/2014 13:22:56 Influenza, split virus, trivalent, preservative 4 completed Not Available [facility] [facility] 04/20/2014 13:22:56 Past Encounters Encounter ID Performer Location Encounter Start Date Encounter Closed Date Diagnosis/Indication Diagnosis SNOMED-CT Code Diagnosis ICD10 Code Diagnosis Note [id number] Leeanne Kline PA-C Main Office [address] [facility] [place] [id number] 11/11/2024 13:55:07 11/11/2024 14:57:32 Type 2 diabetes mellitus without complication 633905910 E11.9 Stable type II diabetes w/o complicati ons. Recommend to continue Ozempic 0.5 mg weekly and discontinu e metfromin at this time. Continue low calorie diet and exercise. Obtain urine for microalbum in. F/u 4 m. Body mass index 30+ - obesity [id number] E66.01 Z68.32 Pt. lost 17 lbs since the last visit 3 m ago on Ozempic.Re com to continue current dose. Health Concerns Section Related Observation LastModified by Organization Detai ls LastModified Time None Recorded Concern Status LastModified by Organization Details LastModified Time None Recorded Payers Encounter Date Sequence Insurance Name Policy Number Policy Holcomb Covered Member ID Holcomb Member ID Guarantor Name 11/11/[address] [facility] (MEDICARE REPLACEMENT/A DVANTAGE - HMO) [id number] Erika Rojas [id number] Erika Rojas 11/11/2024 2 [place] [facility] Erika Rojas [id number] Erika Rojas Notes Date Note Type Note Provider Name and Address Organization Details Recorded Time 11/11/2024 text/html Diabetes F/UReported bypatient.Context: normal range of home blood sugars (in the [...] to back problems. Blood pressure is stable. Leeanne Kline PA-C [address] [address], [place], [phone], [facility] 11/11/2024 15:03:05 OBGyn Episode No OBEpisode recorded.
[2024-12-25 14:09] VITALS: BMI 33.7
[2024-12-29] MEDS: Lactated Ringers 1,000 ML 80 ML IVCONT (07:23)
[2024-12-29 07:32] VITALS: BP 121/72; PULSE 70; RESP 18; TEMP 36.6; O2SAT 97
[2024-12-29 07:34] LABS: Glucose, Whole Blood 101 mg/dL (60-115)
--- NOTE | 2024-12-29 07:42 | MHC.SHP ---
Pre-Procedural Eval Section A - 24 Hr Update-Section A only Date of Service: 12/29/24 Section B - Complete if H&P > 30 days Chief Complaint: Encounter for screening for malignant neoplasm of Details of Present Illness: GERD Relevant Family History (Specify if Yes): No Relevant Social History: None Present Medications: see Short Stay Collaborative assessment Medical History: Significant History (Diabetes HTN (hypertension) Depression) History of Previous Operations: No relevant previous surgery Allergies: Allergies Allergy/AdvReac Type Severity Reaction Status Date / Time No Known Allergies Allergy Verified 12/29/24 07:34 Review of Systems Sugical H&P ROS: Negative: Constitution, Cardiovascular, Respiratory, Neurological, Psychiatric, Hem-Onc, Allergic/Immunologic, Gastrointestinal, Genitourinary, Musculoskeletal, Integumentary, Endocrine and Eyes/Ears/Nose/Throat Exam Surgical H&P Exam: Normal: HEENT, Normal: Heart, Normal: Lungs, Normal: Extremities, Normal: Abdomen, Normal: Skin and Normal: Neurological Plan Diagnosis/Plan: Unchanged I have reviewed the history and physical and performed a pertinent physical examination on my patient. No changes have occurred unless specified. EGD for GERD and colonoscopy for screening Time Spent With Patient Time: Total time managing care of this patient today ____ minutes.
--- NOTE | 2024-12-29 08:28 | P.OPN-COLO_ITS ---
Colonoscopy Operative Note Operative Note Date of Service: 12/29/24 Narrative: Operative Information Procedure Description: EGD, Colonoscopy Indication: GERD, screening Anesthesia: MAC FLEXIBLE TRANSORAL UPPER GASTROINTESTINAL ENDOSCOPY AND COLONOSCOPY PROCEDURE NOTE UPPER ENDOSCOPY Consent: Indications for the procedure and potential complications of bleeding, perforation, reaction to medications and missed diagnosis were discussed with the patient and informed consent was obtained. Instrument: Olympus GIF H 190 J mid size upper endoscope Monitoring: Vital signs and clinical assessment, continuous EKG monitoring, Pulse oximetry, Carbon Dioxide monitoring and blood pressure monitoring were done throughout the procedure. Procedure: The patient was placed in the left lateral decubitis position and pre-procedure medications were administered and a bite block was placed. The endoscope was inserted into the mouth and advanced under direct vision to the third part of duodenum. A careful inspection was made as the upper endoscope was withdrawn including a retroflexed examination of the proximal stomach; Findings and interventions are described below. Findings: Larynx:normal Esophagus: GE junction at 35 cm, diaphragm hiatus at 35 cm, normal mucosa-bx taken from GEJ and distal esophagus Stomach: Patchy erythema Biopsies were obtained. Grade 2 flap valve on retroflexed examination of the cardia. Pylorus outlet slightly tight, but scope passed, some heme noted. Duodenum: Normal bulb and descending duodenum, Intervention: Biopsies as noted above, COLONOSCOPY Instrument: Olympus variable stiffness pediatric scope 190L Colonoscopy Monitoring: Vital signs and clinical assessment, continuous EKG monitoring, Pulse oximetry, Carbon Dioxide monitoring and blood pressure monitoring were done throughout the procedure. Colon withdrawal time was 6 minutes. Procedure: The patient was placed in the left lateral decubitis position and pre-procedure medications were administered. After a digital rectal examination of the ano-rectum, the video colonoscope was inserted into the rectum and advanced through the colon to the cecum/TI. The colonoscope was slowly withdrawn in a retrograde panoramic fashion and the colon mucosa was carefully examined including a retroflexed view of the rectum. Findings and interventions are described below. Procedure Difficulty:moderate Findings: Terminal Ileum-not intubated Cecum:normal right sided retroflexion- normal Ascending Colon: 10 mm semi pedunculated polyp removed with cold snare Transverse Colon -normal Descending Colon:normal Sigmoid Colon: normal Rectum: Retroflexion with medium sized internal hemorrhoids, grade I Anorectum - normal Colon preparation: Buchanan Bowel Preparation Scale Right colon; 1-2 Transverse colon: 2- Left colon; 1-2 (0 = Unprepared colon segment with mucosa not seen due to solid stool that cannot be cleared. 1 = Portion of mucosa of the colon segment seen, but other areas of the colon segment not well seen due to staining, residual stool and/or opaque liquid. 2 = Minor amount of residual staining, small fragments of stool and/or opaque liquid, but mucosa of colon segment seen well. 3 = Entire mucosa of colon segment seen well with no residual staining, small fragments of stool or opaque liquid) Impression and Post Procedure Diagnosis: Endoscopy Findings: gastritis Colonoscopy Findings: colon polyp internal hemorrhoids Plan: Await Pathology results Repeat Colonoscopy in 6-12 months due to prep or earlier if clinically indicated High fiber diet leaflet avoid straining at stool, epsom salts and sitz bath, anusol supps or cream Above findings were reviewed with the patient and relevant handouts were provided if indicated.
--- NOTE | 2024-12-29 08:36 | HO.ANESPROP2 ---
[facility] Past Medical History Medical History GERD (gastroesophageal reflux disease) Diabetes HTN (hypertension) Depression Family History Family history of problems with anesthesia: No Surgical History Surgical History (Updated 12/29/24 @ 07:33 by Ngozi Watson RN) History of ovarian cystectomy Hx of tubal ligation History of Problems with Anesthesia: No Social History Social History (Updated 09/08/24 @ 14:50 by Rohit Rabago [facility]) Are you a primary care tech to a significant other at home: No Do you presently have visiting nurse or other home services: No Alcohol intake: never Patient Tobacco Use Status: Never used Tobacco Have you been hit, kicked, punched, or otherwise hurt by someone within the past year? If so, by whom?: No Are you DNR?: No Advance Directives: No Advance Directives Information Provided: Yes Recently lost weight without trying: No Nutrition Risks: No Nutritional Risk Meds Allergies Allergy/AdvReac Type Severity Reaction Status Date / Time No Known Allergies Allergy Verified 12/29/24 07:34 Active Medications: Current Medications Lactated Ringer's (Lr) 1,000 mls @ 80 mls/hr IVCONT .[id number] SAUL Last Admin: 12/29/24 07:23 Dose: 80 mls/hr Home Medications ?Medication ?Instructions ?Recorded ?Confirmed ?Last Taken ?Type amlodipine 5 mg tablet 5 mg PO DAILY 09/08/24 12/25/24 Unknown History atorvastatin 40 mg tablet 40 mg PO DAILY 09/08/24 12/25/24 Unknown History bupropion HCl 300 mg 24 hr tablet, 300 mg PO DAILY 09/08/24 12/25/24 Unknown History extended release clonidine HCl 0.1 mg tablet 0.1 mg PO BID 09/08/24 12/25/24 Unknown History famotidine 20 mg tablet 20 mg PO BID 09/08/24 12/25/24 Unknown History gabapentin 600 mg tablet 600 mg PO BID 09/08/24 12/25/24 Unknown History semaglutide 0.25 mg or 0.5 mg (2 0.25 mg subcut QWEEK 09/08/24 12/25/24 12/19/24 History mg/3 mL) subcutaneous pen injector (Ozempic) Exam Height,Weight and Vital Signs: Height 4 ft 11 in Weight 75.75 kg Last Vital Signs Temp 97.9 F 12/29/24 07:32 Pulse 70 12/29/24 07:32 Resp 18 12/29/24 07:32 BP 121/72 12/29/24 07:32 Pulse Ox 97 12/29/24 07:32 O2 Del Method Room Air 12/29/24 07:32 Pertinent Lab Results Pertinent Lab Results: Laboratory Tests 12/29/24 07:22 POC Glucose 101 Airway Mallampati Class: II TM Dist: >3cm Neck ROM: Full Assessment and Plan Assessment Anesthesia Assessment: Anesthesia Plan Discussed and Chart Reviewed Final Anesthetic Review Family History of Problems with Anesthesia: No History of Problems with Anesthesia: No NPO: Yes ASA Class: II Final Preanesthetic Review: No Changes in Pt Med Stat, Meds/Allgs Chart Reviewed, Consent Obtained/Reviewed, Anes Risks/Benef Reviewed and DNR Form (If Appl.) Patient Risk: Low Procedure Risk: Low Anesthetic Plan Anesthetic Plan: TIVA Disposition: Standard PACU
[2024-12-29 08:53] VITALS: BP 105/64; PULSE 80; RESP 15; TEMP 36.3; O2SAT 97
[2024-12-29 09:05] VITALS: BP 109/66; PULSE 69; RESP 16; O2SAT 96
[2024-12-29 09:20] VITALS: BP 115/75; PULSE 66; RESP 16; TEMP 36.3; O2SAT 97
== END 2024-12-29 10:11 | disposition home or self-care (01) ==
PROVIDERS: PCP Physician Assistant Medical; Visit Provider Internal Medicine Gastroenterology
PROC: (CPT 45385; principal; 2024-12-29 08:20)
DX: Z12.11 Encounter for screening for malignant neoplasm of colon (principal); D12.2 Benign neoplasm of ascending colon; K64.0 First degree hemorrhoids; K21.9 Gastro-esophageal reflux disease without esophagitis; K29.50 Unspecified chronic gastritis without bleeding; K44.9 Diaphragmatic hernia without obstruction or gangrene; I10 Essential (primary) hypertension; E11.9 Type 2 diabetes mellitus without complications; F32.A Depression, unspecified; Z79.899 Other long term (current) drug therapy; Z79.85 Long-term (current) use of injectable non-insulin antidiabetic drugs
CPT/HCPCS: 45385; 43239; 82947; 88305; 88313; 88342; J2003; J2704

== ENCOUNTER → 2024-12-29 06:47 | Outpatient (BNV) | payer MEDICARE, MEDICAID, SELFPAY | PROVIDERS: PCP Physician Assistant Medical; Visit Provider Internal Medicine Gastroenterology | DX: Z12.11 Encounter for screening for malignant neoplasm of colon (principal); D12.2 Benign neoplasm of ascending colon; K21.9 Gastro-esophageal reflux disease without esophagitis; K29.70 Gastritis, unspecified, without bleeding; K64.0 First degree hemorrhoids | CPT/HCPCS: 43239; 45385 ==